=== PATIENT | female | born 1960 | race Hispanic/Latino ===

== ENCOUNTER 2024-07-24 21:29 | Inpatient (IN) | payer OTHER, SELFPAY ==
[2024-07-24 17:13] VITALS: BP 166/94
[2024-07-24 17:55] LABS: ALT (SGPT) 18 U/L (0-35); AST (SGOT) 18 U/L (14-36); Albumin 3.6 g/dl (3.5-5.0); Alkaline Phosphatase 302 U/L (38-126); Blood Urea Nitrogen 12 mg/dl (7-17); Calcium 9.1 mg/dl (8.4-10.2); Carbon Dioxide 15 mmol/L (22-30); Chloride 92 mmol/L (98-107); Glucose 384 mg/dl (70-99); Potassium 3.6 mmol/L (3.5-5.1); Sodium 129 mmol/L (135-145); Total Bilirubin 0.7 mg/dl (0.2-1.3); Total Protein 6.6 g/dl (6.3-8.2); eGFR > 60.00
[2024-07-24 17:56] LABS: Lactic Acid 1.4 mmol/L (0.7-2.0)
[2024-07-24 18:07] LABS: Absolute Neutrophils -Man Diff 32.1 10^3/uL (1.4-6.5); Band Neutrophils 10 % (0-3); Eosinophils 1 % (0-6); Hematocrit 41.4 % (37.0-47.0); Hemoglobin 14.1 g/dL (12.0-16.0); Lymphocytes 5 % (20-51); Mean Corp Hgb Conc. 34.1 g/dL (33.0-37.0); Mean Corpuscular Volume 88.1 fL (81.0-99.0); Mean Platelet Volume 10.3 fL (7.4-10.4); Monocytes 7 % (2-9); Platelet Count 408 10^3/uL (130-400); Platelets Checked Yes; Red Cell Dist. Width 11.8 % (11.5-14.5); Segmented Neutrophils 77 % (42-75)
[2024-07-24 18:08] LABS: Normal RBC Morphology Yes; Total Cells Counted 100
--- NOTE | 2024-07-24 18:32 | ED.GENMED ---
History of Present Illness
General
Chief Complaint: Skin Problem
Time Seen by Provider: 07/24/24 18:31
History of Present Illness
History of Present Illness:
TIME OF INITIAL ENCOUNTER: 6:30 PM
HPI: Patient presents due to 6 days of upper back swelling. She has been having chills. She denies any significant past medical history. She has been on amoxicillin without improvement. She came here from [facility] with a
human resources hr representative from there.
EXAM:
GENERAL: Appears uncomfortable
HEENT: Moist oral mucosa
CARDIOVASCULAR: No murmurs, tachycardic heart rate, regular rhythm, No chest wall tenderness
PULMONARY: No respiratory distress, breath sounds are clear and equal
ABDOMEN: Soft with no peritoneal signs, no tenderness
NEUROLOGIC: Excellent strength all extremities, no coordination deficits
PSYCHIATRIC: Appropriate mental status, normal insight and judgement
EXTREMITIES: Nontender, no edema, moves all extremities equally
BACK: There is a very large approximately half softball sized abscess which drained copious amount of pus after incision
SKIN: No rash, no lesions
NUMBER AND COMPLEXITY OF PROBLEMS ADDRESSED AT THE ENCOUNTER
� Chronic conditions affecting care: No significant medical problems
� Acute Exacerbation and/or Progression of Chronic Illness: This is an acute problem
� Differential Diagnosis includes: Skin abscess, sepsis, undiagnosed diabetes
AMOUNT AND/OR COMPLEXITY OF DATA TO BE REVIEWED AND ANALYZED
� I performed an independent evaluation of and my interpretation is:
EKG:
CT:
X-rays:
Laboratory Studies: White count 37, hemoglobin normal, 10% bands, bicarb 15, lactic 1.4, glucose 384
Other:
� Review of other/old records: No old records available for review in [facility]
� Clinical information was obtained by an independent historian: I spoke to at bedside and a human resources hr representative from [facility] at bedside to translate
� Prescriptions/Medications Considered but not given:
� Further testing considered but not performed:
RISK OF COMPLICATIONS AND/OR MORBIDITY OR MORTALITY OF PATIENT MANAGEMENT
� Social determinants of health affecting care: Gets care at [facility]
� Discussion with other providers: Notified general surgery, and hospitalist, Dr. Paris for admission
� Escalation of care including admission/observation vs risk of discharge considered: After verbal informed consent given by the , I incised the area of concern and drained a copious amount of purulent drainage. I placed
packing in the affected area. I am concerned for more serious infection and lactic and blood cultures obtained. It appears she also has undiagnosed diabetes as well. Wound culture also obtained.
ANY OTHER UPDATES:
I did order a dose of insulin. She was also given IV fluids. Wound culture pending.
Phy Exam
Physical Exam
Physical Exam:
See HPI
Course
Orders/Labs/Results
Orders:
Orders
07/24/24 17:30
Alcohol Urgent
B-Hydroxybutyrate Urgent
Comment: ADDON
Complete Blood Count/With Diff Urgent
Comprehensive Metabolic Panel Urgent
Lactate Level [Lactic Acid] Urgent
Manual Differential Urgent
07/24/24 19:22
Vancomycin [Vancocin] 2,000 mg 0.9% Sodium Chloride 500 ml [Nss] 500 ml IV NOW
07/24/24 19:38
Ketorolac [Toradol] 15 mg IV NOW STA
07/24/24 19:45
Lactic Acid Q4H
Comment: CANCEL 2nd LACTIC ACID IF 1st LACTIC ACID IS LESS THAN 2
Blood Culture Q30M
DENISE Source: Blood/Venous
Specimen Description:
07/24/24 19:46
Blood Culture Q30M
DENISE Source: Blood/Venous
Specimen Description:
07/24/24 20:08
Wound Culture [Wound/Abscess/Other Culture] Urgent
DENISE Source: Back
Specimen Description:
Date Specimen was Collected: 07/24/24
Time Specimen was Collected: 20:07
07/24/24 20:14
UA Reflex to Culture [Urinalysis Reflex To Culture] Urgent
07/24/24 20:19
0.9% Sodium Chloride 1000 ml [Nss] 1,000 ml IV BOLUS
07/24/24 20:22
Add On- LAB Urgent
Tests Added?: B-hydroxybuterate
07/24/24 20:23
0.9% Sodium Chloride 1000 ml [Nss] 1,000 ml IV BOLUS
07/24/24 20:24
Potassium Chloride [KCl] 40 meq PO NOW STA
07/24/24 20:25
Add On- LAB Urgent
Tests Added?: a1c
Insulin Human Regular [Novolin R] 7 units IV NOW STA
07/24/24 20:42
Bedside Glucose Monitoring As Directed
Frequency: Q1H
Additional Instructions:: please do not start until both boluses given
07/24/24 20:51
Admit/Transfer Patient As Directed
Co-Sign Provider:
Level of Care: Inpatient admission
Assign to:: IMU- Intermediate Care
Physician / Group: Sandra Tsai
Diagnosis: DKA, left upper back abscess, sepsis
Reason for Hospitalization: DKA, left upper back abscess, sepsis
Expected length of stay greater than two midnights?: Yes
ELOS- Estimated Length of Stay in days: 3
I certify the patient meets the requirements for IP care: Yes
PRN Pain Medication Management As Directed
May give lesser potent ordered pain med per pt: Yes
preference::
Protocol:: Medication orders for pain may be administered in a
manner that supports deferring to patient preference
when the pt is:
- Requesting an ordered lesser potent pain medication.
Least to most potent pain medications are defined
as: acetaminophen < NSAID < tramadol < opioids
(morphine, oxycodone, hydromorphone).
- Requesting a lesser dose of the same medication IF
ORDERED.
- Requesting a less intrusive route of administration
if both routes are prescribed by the provider (PO <
IV).
07/24/24 20:54
Code Status As Directed
Resuscitation Status: Full Code
07/24/24 21:00
Reg Insulin 100 Units/100 ml [Novolin R Insulin Infusion] 100 units in 100 ml IV PER PROTOCOL
Initial dose in units/hr, then titrate:: 7
07/24/24 21:28
PRN Pain Medication Management As Directed
May give lesser potent ordered pain med per pt: Yes
preference::
Protocol:: Medication orders for pain may be administered in a
manner that supports deferring to patient preference
when the pt is:
- Requesting an ordered lesser potent pain medication.
Least to most potent pain medications are defined
as: acetaminophen < NSAID < tramadol < opioids
(morphine, oxycodone, hydromorphone).
- Requesting a lesser dose of the same medication IF
ORDERED.
- Requesting a less intrusive route of administration
if both routes are prescribed by the provider (PO <
IV).
07/24/24 22:00
BMP [Basic Metabolic Panel] Q2
07/24/24 23:00
Lactic Acid Q4H
Comment: CANCEL 2nd LACTIC ACID IF 1st LACTIC ACID IS LESS THAN 2
07/25/24 00:00
BMP [Basic Metabolic Panel] Q2
07/25/24 02:00
BMP [Basic Metabolic Panel] Q2
07/25/24 04:00
BMP [Basic Metabolic Panel] Q2
07/25/24 06:00
BMP [Basic Metabolic Panel] Q2
07/25/24 08:00
BMP [Basic Metabolic Panel] Q2
07/25/24 10:00
BMP [Basic Metabolic Panel] Q2
07/25/24 12:00
BMP [Basic Metabolic Panel] Q2
07/25/24 14:00
BMP [Basic Metabolic Panel] Q2
07/25/24 16:00
BMP [Basic Metabolic Panel] Q2
Abnormal Lab Results
07/24/24 07/24/24
17:30 21:14
WBC 37.0 H 10^3/uL
(4.8-10.8)
Plt Count 408 H 10^3/uL
(130-400)
Abs Neuts (Manual) 32.1 H 10^3/uL
(1.4-6.5)
Segmented Neutrophils 77 H %
(42-75)
Band Neutrophils 10 H %
(0-3)
Lymphocytes (Manual) 5 L %
(20-51)
Sodium 129 L mmol/L
(135-145)
Chloride 92 L mmol/L
(98-107)
Carbon Dioxide 15 L mmol/L
(22-30)
Creatinine 0.4 L mg/dL
(0.6-1.0)
Glucose 384 H mg/dl
(70-99)
Alkaline Phosphatase 302 H U/L
(38-126)
B-Hydroxybutyrate 4.23 H mmol/L
(0.02-0.27)
POC Glucose 306 H mg/dl
(70-99)
07/24/24 17:30
07/24/24 17:30
Vital Signs
Initial and Last Documented VS:
Initial Vital Signs
Temp Pulse Resp BP Pulse Ox
37.3 C 128 20 166/94 99
07/24/24 17:13 07/24/24 17:13 07/24/24 17:13 07/24/24 17:13 07/24/24 17:13
Last Documented Vital Signs
Temp Pulse Resp BP Pulse Ox
37.3 C 102 20 100/68 98
07/24/24 17:13 07/24/24 21:30 07/24/24 17:13 07/24/24 21:21 07/24/24 21:30
*Critical Care Note
Total Time (30-74mins, 75-104mins- exclusive of procedures): Not Applicable
ED Attending Note
-
Portions of this chart may have been created with voice recognition software.� Occasional wrong word or��sound alike� substitutions may have occurred due to the inherent limitations of voice recognition software.
Discharge Plan
Departure
Patient Disposition: Admit
Date of Disposition: 07/24/24
Time of Disposition: 20:24
Presentation/result/management discussed w/ accepting MD/DO: Hospitalist
Discharge Problem:
Sepsis
Interventions
Interventions:
*Risk Screen - Suicide Last Done: 07/24/24 17:13
*General Assessment Last Done: 07/24/24 19:18
*Neglect/Abuse Screening Last Done: 07/24/24 19:18
ED- Fall Risk Assessment Last Done: 07/24/24 20:12
*ED COVID-19 Vaccine History Last Done: 07/24/24 19:18
ED-Skin Assessment Last Done: 07/24/24 20:12
[2024-07-24 19:16] VITALS: BMI 28.8
[2024-07-24] MEDS: VANCOCIN 540 MG IV (20:06)
[2024-07-24] MEDS: TORADOL 15 MG IV (20:06)
--- NOTE | 2024-07-24 20:08 | W.PN.UPDATE ---
Addendum entered and electronically signed by Sandra Tsai MD 07/24/24 23:33:
On exam patient AAO x3; left upper back with packing in place, surrounding tenderness mild drainage through gauze
Chest clear
CV: S1, S2, RRR
Abdomen benign
No LE swelling
Addendum entered and electronically signed by Sandra Tsai MD 07/24/24 23:24:
*patient took her own Amoxicillin at home prior to presenting to clinic
Original Note:
Update Note
Progress Note Update
This is an addendum to H&P written by CYCLE DIRECTOR Geraldine Palacios
I saw and examined the patient.
The CYCLE DIRECTOR's note was reviewed and I agree with the note.
Comment:
Ms. Nayeli Javier is a 64 yo woman without significant past medical history presents to the ER complaining of growing mass in upper back associated with chills and fever. She was started on amoxicillin as outpatient without improvement.
Triage VS: 99, P 128, RR 20, BP 166/94, SpO2 99%
LABS: WBC 37, bands 10%, Hg 14.1, PLT 408, Na 129, K+ 3.6, Cl 92, CO2 15, Cr 0.4, lactate 1.4, glucose 384, AG = 22
MAR: Vancomycin, IV Toradol
per ER note: 'After verbal informed consent given by the , I incised the area of concern and drained a copious amount of purulent drainage. I placed packing in the affected area.'
Sepsis 2/2 Abscess
-s/p drainage in the ER now with packing in place
-continue IV Vancomycin
-F/U blood cultures and wound culture
-GS consulted
-IVF
DKA, new diagnosis DM
Hyperglycemia
-2L IVF ordered
-patient with mild DKA with CO2 15, AG 22; Glucose 384
-will start IV insulin gtt
-give extra K now (K 3.6) and monitor BMP q 2 hours initially to monitor K
-q 1 hour glucose checks
-DM CYCLE DIRECTOR consult
-F/U AM A1c
Pseudohyponatremia - corrected 134
Remainder of plan per CYCLE DIRECTOR's note
76 minutes spent on patient care
[2024-07-24 20:09] VITALS: BP 116/100
--- NOTE | 2024-07-24 20:10 | HPS.HSE ---
Family Physician
-
Family Physician:
Chief Complaint
-
left upper back pain and swelling
History of Present Illness
Patient is a 64-year-old female with no significant past medical history who presented to [facility] ED for evaluation of left upper back pain and swelling. Patient stated that 6 days ago she had a blackhead like area that appeared to
possibly be an ingrown hair that gradually developed into a large abscess. She started taking amoxicillin that she had at home 5 days ago and it continued to increase in size. She went to [facility] today where Dr. Delvalle sent her to ED
for evaluation. Patient states she had no fevers but did have the chills. Denies any other symptoms. ED physician obtained copious amount of pus after incision. Incidentally when labs were drawn patient is currently in DKA with a gap of 22.
Medical History
Past Medical History
Past Medical History: Reports None
Past Surgical History: Reports Other
Additional Past Surgical History:
x3
cholecystectomy
Social History
Tobacco: Non-smoker
Alcohol: None
Drug: None
Living: With Family
Employment: Not Employed
Family History
Family History: Other (Mother: DM)
Allergies / Home Medications
Allergies reflects when Allergies were last updated in [employer].
Home Medications with original date entered in [employer]
Allergy/Medication List:
Allergies
Allergy/AdvReac Type Severity Reaction Status Date / Time
No Known Allergies Allergy Unverified 07/24/24 17:16
Home Medications
amoxicillin 500 mg tablet 500 mg PO TID 07/24/24
ibuprofen 200 mg tablet (Advil) 200 mg PO Q6HPRN PRN mild pain/fever 07/24/24
Review of Systems
-
History Source: Patient
Constitutional: Reports Chills
EENT: Reports No Symptoms
Respiratory: Reports No Symptoms
Cardiac: Reports No Symptoms
Abdomen/GI: Reports No Symptoms
: Reports No Symptoms
Musculoskeletal: Reports No Symptoms
Skin: Reports Other (large area of swelling and pain to left upper back )
Neurological: Reports No Symptoms
Endocrine: Reports No Symptoms
Hematologic/Lymphatic: Reports No Symptoms
Psych: Reports No Symptoms
Physical Exam
Vital Signs
Vital Signs
Temp Pulse Resp BP Pulse Ox
99.1 F 128 20 166/94 99
07/24/24 17:13 07/24/24 17:13 07/24/24 17:13 07/24/24 17:13 07/24/24 17:13
Physical Exam
General: Well Developed, Well Nourished, No Apparent Distress, Comfortable, Conversant and Obese
HEENT: NormoCephalic, Moist mucous membranes, Atraumatic, PERRLA, [place] Conjunctivae, Nose Appears Normal and Ears Appear Normal
Respiratory: Clear, Non Labored Respirations and Decreased Breath Sounds
Cardiac: S1/S2 and Regular Rhythm; No Murmur, Rub or Gallop
Breast: Deferred by me
GI: Soft, Non Tender, Non Distended and Normal Bowel Sounds; No Organomegaly
Rectal: Deferred by Provider
Genito-urinary: Deferred by me
Musculoskeletal: No Clubbing, No Cyanosis and No Edema
Skin: Warm, IV/Catheter Site and Other (Large abscess to left upper back draining copious amounts of pus after incision ); No Rash
Neuro: Awake, Alert, AO x 3 and Nonfocal/grossly intact
Psych: Calm and Intact Judgment/Insight
Laboratory Results
-
07/24/24 17:30
07/24/24 17:30
Laboratory Results
Lactic Acid 1.4 mmol/L (0.7-2.0) 07/24/24 17:30
Total Bilirubin 0.7 mg/dl (0.2-1.3) 07/24/24 17:30
AST 18 U/L (14-36) 07/24/24 17:30
ALT 18 U/L (0-35) 07/24/24 17:30
Alkaline Phosphatase 302 U/L (38-126) H 07/24/24 17:30
Data Reviewed
-
Lab Data: Labs Reviewed by me (WBC 37.0, Bands 10, Na+ 129, Bicarb 15, glucose 384, alk phos 302)
Impression/Plan
-
IMPRESSION/PLAN:
#upper left back abscess
WBC 37.0, Bands 10%
incision by ED with copious amount of pus
- Admit to IMU
- consult surgery
- IV Vanco
#DKA
patients mother with hx DM
- DKA protocol with IV insulin gtt
- IVF KCl
- NPO
- BMP q2
- A1C
- consult Diabetic OPTICAL ELEMENT COATER
Code status: Full code
DVT prophylaxis: Lovenox sq
[2024-07-24 20:11] VITALS: BP 110/57
[2024-07-24 20:29] LABS: Lactic Acid 1.6 mmol/L (0.7-2.0)
[2024-07-24] MEDS: NSS 1000 IV ×2 (20:30→20:48)
[2024-07-24] MEDS: KCL 40 MEQ PO (20:46)
[2024-07-24 21:06] LABS: Alcohol None Detected
[2024-07-24 21:10] LABS: B-Hydroxybutyrate 4.23 mmol/L (0.02-0.27)
[2024-07-24 21:15] LABS: Glucose - Point of Care 306 mg/dl (70-99)
[2024-07-24] MEDS: NOVOLIN R INSULIN INFUSION 100 IV (21:15)
[2024-07-24 21:21] VITALS: BP 100/68
[2024-07-24 22:28] VITALS: BP 113/56
[2024-07-24 22:37] LABS: Glucose - Point of Care 274 mg/dl (70-99)
[2024-07-24 22:58] LABS: Urine Albumin 1+ (Neg - Trace); Urine Bilirubin Negative (Negative); Urine Character Clear (Clear); Urine Color Yellow; Urine Glucose 4+ (Negative); Urine Ketone 3+ (Negative); Urine Leukocyte Negative (Negative); Urine Nitrite Negative (Negative); Urine Occult Blood Negative (Negative); Urine Specific Gravity 1.015 (<1.030); Urine Urobilinogen Negative (Neg - 1+)
[2024-07-24 23:19] LABS: Urine Bacteria Few (Negative); Urine Red Blood Cell 0-2 /HPF (0-2); Urine White Cell 0-2 /HPF (0-5)
[2024-07-24] MEDS: NSS with KCL 20 MEQ 1000 IV (23:27)
[2024-07-24 23:38] LABS: Glucose - Point of Care 198 mg/dl (70-99)
[2024-07-24 23:39] LABS: Blood Urea Nitrogen 8 mg/dl (7-17); Calcium 8.1 mg/dl (8.4-10.2); Carbon Dioxide 13 mmol/L (22-30); Chloride 103 mmol/L (98-107); Estimated Creatinine Clearance 82 ml/min; Glucose 253 mg/dl (70-99); Potassium 3.4 mmol/L (3.5-5.1); Sodium 130 mmol/L (135-145); eGFR > 60.00
[2024-07-25] VITALS (11 sets, daily range): BP systolic 90–145; BP diastolic 42–71; BMI 29.8
[2024-07-25] MEDS: D5/0.45%NSS with KCL 20 MEQ 1000 IV (00:05)
[2024-07-25] MEDS: SODIUM BICARBONATE 50 MEQ IV (00:06)
--- NOTE | 2024-07-25 00:29 | PTCARENOTE ---
Patient admitted to IMU around 2229. Patient georgian speaking, understands small amount of french. Spouse at bedside and able to translate. Patient aaox3, denies pain however is noted moaning at times during wound care. Dressing peeling off of left
upper back. Abd pad removed and area cleaned with NSS and gauze, packing remained in place. Abscess draining large amounts of gonzalez/pink purulent drainage. Area cleaned and sterile gauze and ABD pads applied. HRR, NSR on the monitor. Lungs CTA
throughout, bs active x4. Patient assisted x1 to bsc, continent of urine.
Patient had insulin gtt at 7u/hr, decreased to 4, then to 2u/hr at the current time. RN contacted PLAYER PIANO TECHNICIAN when last bg 198, critical Co2- 13. PLAYER PIANO TECHNICIAN ordered amp of bicarb and changed IVF to D5 0.45% with 20mEq of K. Medications administered and fluids
changed. Patient currently resting in bed with spouse at bedside. Will continue to monitor.
[2024-07-25 00:49] LABS: Glucose - Point of Care 180 mg/dl (70-99)
[2024-07-25] MEDS: KCL 20 MEQ PO (01:02)
[2024-07-25 01:26] LABS: Blood Urea Nitrogen 9 mg/dl (7-17); Calcium 7.8 mg/dl (8.4-10.2); Carbon Dioxide 19 mmol/L (22-30); Chloride 105 mmol/L (98-107); Estimated Creatinine Clearance 82 ml/min; Glucose 186 mg/dl (70-99); Potassium 3.4 mmol/L (3.5-5.1); Sodium 132 mmol/L (135-145); eGFR > 60.00
[2024-07-25 01:47] LABS: Glucose - Point of Care 194 mg/dl (70-99)
--- NOTE | 2024-07-25 02:09 | PTCARENOTE ---
BROOKE notified about 0000 BMP result per order.
[2024-07-25 02:46] LABS: Glucose - Point of Care 212 mg/dl (70-99)
[2024-07-25] MEDS: TYLENOL 650 MG PO ×2 (02:50→08:16)
--- NOTE | 2024-07-25 03:07 | PTCARENOTE ---
pt with pain to abscess site. notified covering SEROLOGY TEACHER- PO tylenol ordered and given. remains at bedside.
[2024-07-25 03:21] LABS: Blood Urea Nitrogen 9 mg/dl (7-17); Calcium 8.2 mg/dl (8.4-10.2); Carbon Dioxide 20 mmol/L (22-30); Chloride 106 mmol/L (98-107); Estimated Creatinine Clearance 83 ml/min; Glucose 226 mg/dl (70-99); Potassium 3.8 mmol/L (3.5-5.1); Sodium 135 mmol/L (135-145); eGFR > 60.00
[2024-07-25 03:38] LABS: Glucose - Point of Care 238 mg/dl (70-99)
--- NOTE | 2024-07-25 03:41 | W.PN.UPDATE ---
Update Note
Progress Note Update
-Anion gap is 9.
-10 unit of Lantus given, will d/c insulin drip, starting SSI and diabetic diet.
[2024-07-25] MEDS: LANTUS 0.1 UNITS SC (04:19)
[2024-07-25 04:37] LABS: Glucose - Point of Care 205 mg/dl (70-99)
[2024-07-25 05:50] LABS: Glucose - Point of Care 241 mg/dl (70-99)
[2024-07-25 05:59] LABS: Hematocrit 30.1 % (37.0-47.0); Hemoglobin 10.6 g/dL (12.0-16.0); Mean Corp Hgb Conc. 35.2 g/dL (33.0-37.0); Mean Corpuscular Hgb 30.6 pg (27.0-31.0); Mean Platelet Volume 10.3 fL (7.4-10.4); Platelet Count 304 10^3/uL (130-400); Red Blood Cell Count 3.46 10^6/uL (4.20-5.40); Red Cell Dist. Width 11.8 % (11.5-14.5); White Blood Cell Count 25.7 10^3/uL (4.8-10.8)
--- NOTE | 2024-07-25 06:08 | PTCARENOTE ---
pt's gap closed, notified covering DEPUTY BRAND INSPECTOR- orders placed. pt's aware of new orders and translated to patient as well. insulin gtt and IV fluids off at this time. pt given diet and education done on how to order breakfast.
[2024-07-25 06:11] LABS: Blood Urea Nitrogen 9 mg/dl (7-17); Calcium 8.1 mg/dl (8.4-10.2); Carbon Dioxide 20 mmol/L (22-30); Chloride 106 mmol/L (98-107); Estimated Creatinine Clearance 83 ml/min; Glucose 204 mg/dl (70-99); Magnesium 1.8 mg/dl (1.6-2.3); Potassium 3.6 mmol/L (3.5-5.1); Sodium 133 mmol/L (135-145); eGFR > 60.00
--- NOTE | 2024-07-25 06:13 | PTCARENOTE ---
Patient with increased observable pain. Received 1 dose of tylenol earlier this am. Patient c/o positional pain as she cannot lean back d/to discomfort from laceration. Rn notified RACE CAR MECHANIC and offered patient to get oob into chair with assist. Pillows
positioned on chair to allow patient to lean back without putting pressure on wound. Patient verbalizes increased comfort and declines PRN pain medication at this time.
[2024-07-25 07:59] LABS: Glucose - Point of Care 215 mg/dl (70-99)
--- NOTE | 2024-07-25 08:01 | PHA.VAN.IN ---
Assessment
- Assessment
Renal Function: Appears similar to baseline
AUC Dosing Plan
- Dosing Variables
Dosing Weight (kg): 71.5
Dosing CrCl (ml/min): 82
Vd coefficient (L/kg): 0.7
- Empiric Dosing
Initial / Loading Dose: 2000mg - 07/24 20:06
Maintenance Regimen: Vanc 750mg Q12H - first dose now then 1800
Estimated AUC (mcg*h/mL): 429
Estimated Peak (mcg*h/mL): 25.8
Estimated Trough (mcg/ml): 11.6
Estimated Half Life (H): 9.6
- Monitoring
No levels ordered at this time: consider levels in next few days
Pharmacokinetics Vancomycin I
- -
Patient Age: 64
Patient Sex: Male
Vancomycin Day #: 1
Indication: Skin And Soft Tissue
Requesting Provider: Yakov Palacios
Pertinent Antimicrobial Allergies:
NKDA
Height / Weight:
Height 5 ft 1 in
Actual Weight 71.5 kg
Pertinent Past Medical History: DM
- Vital Signs / Lab Results
Temp Pulse Resp BP Pulse Ox
100.1 F 70 20 110/56 98
07/25/24 04:28 07/25/24 06:11 07/25/24 06:11 07/25/24 06:11 07/25/24 02:06
Lab Results - Hematology
07/24/24 07/25/24
17:30 05:38
WBC 37.0 H 25.7 H
Band Neutrophils 10 H
Lab Results - Chemistry
07/24/24 07/24/24 07/25/24
17:30 22:40 00:48
BUN 12 8 9
Creatinine 0.4 L 0.3 L 0.3 L
Estimated Creat Clear 82 82
Albumin 3.6
07/25/24 07/25/24 07/25/24
02:52 04:00 05:38
BUN 9 Cancelled 9
Creatinine 0.3 L Cancelled 0.3 L
Estimated Creat Clear 83 Cancelled 83
Albumin
07/25/24 07/25/24 07/25/24
08:00 10:00 12:00
BUN Cancelled Cancelled Cancelled
Creatinine Cancelled Cancelled Cancelled
Estimated Creat Clear Cancelled Cancelled Cancelled
Albumin
07/25/24 07/25/24
14:00 16:00
BUN Cancelled Cancelled
Creatinine Cancelled Cancelled
Estimated Creat Clear Cancelled Cancelled
Albumin
07/24/24 07/24/24 07/24/24
17:30 19:45 23:00
Lactic Acid 1.4 1.6 Cancelled
Lab Results - Urine
07/24/24
22:40
Urine Nitrite (Reflex) Negative
Leukocyte Esterase Rfl Negative
Urine WBC (Reflex) 0-2
Ur Squamous Epith Cells 6-10
Urine Bacteria (Reflex) Few A
[2024-07-25] MEDS: NOVOLOG FLEXPEN-LOW RESISTANCE 2 UNITS SC (08:16)
[2024-07-25 08:22] LABS: % Basophils 0.7 % (0-2); % Eosinophils 0.5 % (0-6); % Lymphocytes 8.4 % (20.5-51.1); % Monocytes 7.4 % (1.7-9.3); Absolute Basophils 0.2 10^3/uL (0-0.2); Absolute Eosinophils 0.1 10^3/uL (0-0.7); Absolute Lymphocytes 2.2 10^3/uL (1.2-3.4); Absolute Monocytes 1.9 10^3/uL (0.1-0.6); Absolute Neutrophils 20.3 10^3/uL (1.4-6.5); Nucleated Red Blood Cells % 0 %
[2024-07-25] MEDS: VANCOCIN 150 IV ×2 (08:29→18:32)
--- NOTE | 2024-07-25 09:52 | W.PN.HOSP.TC ---
Addendum entered and electronically signed by Tc Reyes MD 07/25/24 20:06:
Attending Addendum-
I saw and evaluated the patient. I reviewed the resident�s note and agree with findings and plan as documented in the resident�s note. Sub: Seen with present. Patient only speaks Yoruba. Patient complains of mild pain in upper back. Febrile
this AM no chills. No other complaints. Full 12 point ROS reviewed and negative except as documented Exam: Vitals reviewed in chart GEN-NAD heart RRR lungs claer abd soft Back upper left back 6x6 abscess soft fluctuant packing in place. LE no edema
b/l
Plan:
#Sepsis secondary to upper left back abscess with extension into muscle
-CT chest- 07/25-Posterior superior left para midline upper back infection with intramuscular extension involving the left trapezius muscle.
-s/p I and D in ED 07/24 draining copious amount of pus-sent for analysis
-I and D at bedside by surgery on 07/25- 20ccs of pus expressed and not sent for analysis
-gm stain GPC- await cx results
-blood cx- NGTD
-cont vancomycin day #2
-cont wound care per surgery
-leukocytosis trending down
-repeat CBC in am
#DKA/DM
-new dx DM- hba1c 12.8
-gap closed, insulin gtt transitioned to NovoLog 70/30 and metformin due to cost
-transfer out of IMU
-DC IVF
-advance diet
-Diabetic PAPER STRIPPER on board appreciate input
# Pseudohyponatremia
- from hyperglycemia
- cont to trend BMP
# Anemia
- partially dilutional trend cbc
DVPp-lovenox
CODE- FULL verified with /POA
ACP
Patient consented to discuss,I spoke Yoruba with patient, present, time spent explanation of advance directives, changes in health status, patient�s health care wishes if the patient becomes unable to make health decisions, goals of care,
code status, and prognosis- 16 minutes
Time spent coordinating care, review of plan of care with resident, personally reviewed previous records in EMR, med rec, labs, radiology, d/w nursing, family total time documented is exclusive of any additional time listed that was spent in advance
care planning discussion -�54 minutes
Original Note:
Today's Communication/Plan
-
Continue insulin sliding scale
Awaiting surgery consult
Continue Vanco while awaiting for culture results
Transfer to [facility]
Assessment / Plan
Assessment / Plan
64-year-old female with no significant past medical history who presented to [facility] ED for evaluation of left upper back pain and swelling. Incidental finding of DKA with gap of 22 on arrival.
# Sepsis secondary to left upper back abscess
-- s/p 2 bags of IV NSS in ER, 1 bag potassium chloride/sodium chloride with KCl 20 meq, 1 bag potassium chloride/dextrose/sodium chloride with KCl 20
-- I&D in the ER
-- IV vancomycin per protocol
-- Blood culture and wound culture pending; MRSA pending
-- Tylenol as needed for pain; s/p 1 dose of IV Dilaudid 0.5
-- Awaiting surgery consult
# DKA; new onset diabetes melitis
--Beta-hydroxybutyrate 4.23 on arrival
--Was initially on insulin drip and received 40+20 mEq potassium chloride however gap closed with anion gap of 9 today
--IV fluids as above
--s/p sodium bicarb 50 mEq
--Discontinue insulin drip
--Insulin sliding scale low resistant
--HbA1c 12.8
--Consult diabetic PAPER STRIPPER; consult for diabetic education
-- Transfer out of IMU
#Anemia
-- Likely delusional
-- Repeat CBC in a.m.
# Ambulatory dysfunction
-- PT eval and treat
DVT prophylaxis; Lovenox
Diabetic diet
Full code
Anticipated Discharge: Within 24 hours
Subjective/Interval History
-
Date of Service: July 25, 2024
Mild pain around the abscess on left upper back.
Objective Data
-
Labs:
Laboratory Data
Total Bilirubin 0.7 mg/dl (0.2-1.3) 07/24/24 17:30
AST 18 U/L (14-36) 07/24/24 17:30
ALT 18 U/L (0-35) 07/24/24 17:30
Alkaline Phosphatase 302 U/L (38-126) H 07/24/24 17:30
Laboratory Data
WBC 25.7 10^3/uL (4.8-10.8) H 07/25/24 05:38
Hgb 10.6 g/dL (12.0-16.0) L D 07/25/24 05:38
Plt Count 304 10^3/uL (130-400) D 07/25/24 05:38
eGFR Cancelled 07/25/24 16:00
Lab Results - Hematology
07/24/24 07/25/24
17:30 05:38
WBC 37.0 H 25.7 H
Band Neutrophils 10 H
Lab Results - Chemistry
07/24/24 07/24/24 07/25/24
17:30 22:40 00:48
BUN 12 8 9
Creatinine 0.4 L 0.3 L 0.3 L
Estimated Creat Clear 82 82
Albumin 3.6
07/24/24 07/24/24 07/24/24
17:30 19:45 23:00
Lactic Acid 1.4 1.6 Cancelled
Lab Results - Urine
07/24/24
22:40
Urine Nitrite (Reflex) Negative
Leukocyte Esterase Rfl Negative
Urine WBC (Reflex) 0-2
Ur Squamous Epith Cells 6-10
Urine Bacteria (Reflex) Few A
Vital Signs:
Vital Signs
Temp Pulse Resp BP Pulse Ox
101.3 F H 70 20 110/56 98
07/25/24 07:20 07/25/24 06:11 07/25/24 06:11 07/25/24 06:11 07/25/24 02:06
Review of Systems
-
History Source: Patient
Constitutional: Reports Fever
Respiratory: Reports No Symptoms
Cardiac: Reports No Symptoms
Abdomen/GI: Reports No Symptoms
Neuro: Reports No Symptoms
Endocrine: Reports No Symptoms
Physical Exam
-
General: Well Nourished, No Apparent Distress and Conversant (Yoruba only)
HEENT: Normocephalic and Atraumatic
Respiratory: Clear to Auscultation
Cardiac: Regular Rhythm
GI: Soft, Nontender and Nondistended
Musculoskeletal: No Edema
Skin: Warm, Dry and Other (Dressing with packing in place on left upper back. Mild pain on palpation. No apparent discharge. Mild erythema)
Neuro: Awake, Alert and Oriented
Psych: Calm
Data Reviewed
-
Labs: Labs Reviewed by me, Discussed with Physician and Discussed with Patient
[2024-07-25 11:52] LABS: Glucose - Point of Care 251 mg/dl (70-99)
--- NOTE | 2024-07-25 12:13 | CM ---
Armenian speaking patient with Dx new DM/DKA, upper left back abscess. Room air. Off insulin gtt, insulin SQ. Wound care nurse consult pending.
Met with patient and Clifford, with son also at bedside;
the patient resides with her in a 1 story house with 3 ZACK.
She had been independent in ADLs and ambulation until 6-7 days ago when she became ill, stayed in bed, was weak and wobbly when ambulating.
The does seasonal work, is off work for the next 3-4 weeks and can assist the patient at home.
The has been doing wound care, unspecified, to her upper left back.
The patient has no DME or prior VN.
The patient has no PCP. She has no insurance and receives her outpatient medical care at [facility].
Pharmacy - [address], [place]
Plan watch for wound care needs.
Plan probable home with follow up care at [facility].
[2024-07-25] MEDS: DILAUDID 0.5 MG IV (12:30)
--- NOTE | 2024-07-25 12:39 | PTCARENOTE ---
I and d performed bedside by surgery. pt premedicated with 0.5 mg dilaudid iv.
[2024-07-25 12:45] LABS: Glycohemoglobin (HgbA1c) 12.8 % (4.0-5.6)
[2024-07-25] MEDS: NOVOLOG FLEXPEN-LOW RESISTANCE 3 UNITS SC (13:23)
--- NOTE | 2024-07-25 14:03 | WOUNDNOTE ---
[facility] RN NOTE: Reviewed chart and met with patient. Patients wound assessed with Dr. Jones, who performed I&D at bedside. Wound drained large amount of purulent drainage. Dr. Jones packed wound with dry gauze. Plan is for CT scan. Sacrum and heels
intact. Patient moves easily in bed. Wound orders orders, care plan and discharge updated. AMANDA Thomas given updated. Will follow as needed.
--- NOTE | 2024-07-25 14:10 | WOUNDNOTE ---
LEFT UPPER BACK.
--- NOTE | 2024-07-25 14:12 | CON.GS ---
Consultation
-
Date/Time Consultation Requested: 07/24/2024 at 7 PM
Date/Time Consultation Performed: 07/25/2024 1 PM
Requesting Provider: Hospitalist
Performing Provider: Dr. Richey
Reason for Consultation: Back abscess
Medical History
-
Chief Complaint: Back abscess
History of Present Illness:
This is a 64-year-old Azeri-speaking female who presents with 6 days of left upper back swelling. She denies prior medical history though was noted to have glucose in the 300s on admission. The patient underwent an incision and drainage
procedure in the ED. General surgery consulted for wound care reevaluation and management. The patient denies Fever, Chest Pain, Shortness Of Breath, Nausea, Vomiting, changes in urinary and bowel habits, unintentional weight loss.
Past Medical History
Past Medical History: None
Past Surgical History: None
Social History
Tobacco: Non-Smoker
Alcohol: None
Drug: None
Personal:
Living: With Family
Family History
Family History: Reviewed & Not Pertinent
Allergies / Home Medications
Allergy/AdvReac Type Severity Reaction Status Date / Time
No Known Allergies Allergy Unverified 07/24/24 17:16
�Medication �Instructions �Recorded �Confirmed �Type
amoxicillin 500 mg tablet 500 mg PO TID Infection 07/24/24 07/24/24 History
ibuprofen 200 mg tablet (Advil) 200 mg PO Q6HPRN PRN mild 07/24/24 07/24/24 History
pain/fever
Review of Systems
-
All other systems: Negative unless noted
A 10 point review of systems was completed, and was negative except as per HPI.
Physical Exam
Vital Signs
Temp Pulse Resp BP Pulse Ox
97.6 F 75 15 118/62 97
07/25/24 11:05 07/25/24 10:00 07/25/24 10:00 07/25/24 10:00 07/25/24 10:22
07/24/24 07/25/24 07/26/24
06:59 06:59 06:59
Actual Weight 71.5 kg
Body Mass Index (BMI) 29.8
Lab Results
07/25/24 05:38
07/25/24 16:00
WBC 25.7 10^3/uL (4.8-10.8) H 07/25/24 05:38
Hgb 10.6 g/dL (12.0-16.0) L D 07/25/24 05:38
Hct 30.1 % (37.0-47.0) L 07/25/24 05:38
Plt Count 304 10^3/uL (130-400) D 07/25/24 05:38
Abs Immat Gran (auto) 1.0 10^3/uL (0-0.05) H 07/25/24 05:38
Neutrophils % 79.0 % (42.2-75.2) H 07/25/24 05:38
Physical Exam
General: Well Developed
HEENT: Normocephalic
Respiratory: Non Labored Respirations
GI: Soft, Non Tender and Non Distended
Skin: Other (The patient has a large roughly 6 cm round indurated erythematous area on her left upper back with pus coming from a small linear incision.)
Data Reviewed
-
Labs: Labs Reviewed by me, Discussed with Physician, Discussed with Nurse, Discussed with Patient and Discussed with Family
Total Time Spent with Patient (in minutes): 60
Assessment / Plan
-
This is a 64-year-old female with no significant past medical history who presents with an enlarging left upper back abscess that has been going for the past 6 days.
Will plan for an incision and drainage at the bedside here to allow improved drainage. See separate note.
Wound care instructions reviewed:
Will need to change packing twice daily until output decreases.
Continue antibiotics.
Glucose control.
Patient appears stable for floor, will defer transfer to primary.
We will obtain a CT of her chest with IV contrast to ensure there is no residual abscess in her back
General surgery will continue to follow
--- NOTE | 2024-07-25 14:20 | W.PN.SURGUPD ---
Surgical Update
Surgical Update
Bedside incision and Drainage
A team time-out was performed confirming the location/laterality of the procedure, consent and allergies reviewed.
Location: Left upper back
Dimensions: 6 cm x 6 cm
Local: 1% Lidocaine
Autopsy Pathologist: Chantell (wound care)
The skin was cleaned with alcohol and anesthetized with lidocaine. previous linear incision was turned to a cruciate 1 and extended cephalad and caudad. The dissection was carried down through subcutaneous tissue. The abscess cavity was identified
which extended down into the muscle. The wound was irrigated with sterile saline. An additional roughly 20 cc of pus was expressed. Hemostasis was obtained. There was minimal blood loss. The skin was packed with a packing strip and covered with
gauze. No specimens were sent to Pathology/Culture. The patient tolerated the procedure well, discharge instructions reviewed and all questions were answered.
--- NOTE | 2024-07-25 16:28 | PN.DE.MGMTRT ---
Insulin Management
- -
07/25/2024: Diabetes Management Consult
64 year old female w/PMH: T2DM back pain and swelling due to back abscess s/p I&D in the ED. noted for incidental finding of DKA with a glucose level of 384 on admission and GAP of 22. Pt was started on DKA protocol. A1C 12.8%, Cr 0.3, eGFR >60.
GAP has closed and pt was started SQ insulin
Pt received Lantus 10 units @ 4am, insulin drip was turned off at 5AM.
Patient states that she has no insurance but follows up with the [facility] for routine care
Pt awake, alert, oriented, sitting up in chair, offers no complaints, family-Dtr and Son at bedside, assisting with care.
Glucose range 205 to 251 requiring 2-3 units of corrective insulin. She is ordered basal/bolus insulin, however, this is cost prohibitive given lack of insurance
Will switch to 70/30, will start 20 units BID, 1st dose at dinner time. Start Metformin 500mg BID,
Pt's son and Dtr have been instructed to get ReliOn glucose monitor from [facility] for pt use at home.
Provided insulin instructions- please see detailed Diabetes education note.
Diabetes History
- -
Type of Diabetes: 2 requiring insulin
Pre-Admission Diabetes Regimen
07/24/24 07/24/24 07/25/24
17:30 22:40 00:48
Creatinine 0.4 L 0.3 L 0.3 L
07/25/24 07/25/24 07/25/24
02:52 04:00 05:38
Creatinine 0.3 L Cancelled 0.3 L
07/25/24 07/25/24 07/25/24
08:00 10:00 12:00
Creatinine Cancelled Cancelled Cancelled
07/25/24 07/25/24
14:00 16:00
Creatinine Cancelled Cancelled
Lab Results
Hemoglobin A1c 12.8 % (4.0-5.6) H 07/25/24 05:38
Insulin Pump Settings
IP Diabetes Regimen
07/24/24 07/24/24 07/24/24
17:30 21:14 22:26
Glucose 384 H
POC Glucose 306 H 274 H
07/24/24 07/24/24 07/25/24
22:40 23:25 00:37
Glucose 253 H
POC Glucose 198 H 180 H
07/25/24 07/25/24 07/25/24
00:48 01:35 02:34
Glucose 186 H
POC Glucose 194 H 212 H
07/25/24 07/25/24 07/25/24
02:52 03:25 04:00
Glucose 226 H Cancelled
POC Glucose 238 H
07/25/24 07/25/24 07/25/24
04:25 05:31 05:38
Glucose 204 H
POC Glucose 205 H 241 H
07/25/24 07/25/24 07/25/24
07:48 08:00 10:00
Glucose Cancelled Cancelled
POC Glucose 215 H
07/25/24 07/25/24 07/25/24
11:40 12:00 14:00
Glucose Cancelled Cancelled
POC Glucose 251 H
07/25/24
16:00
Glucose Cancelled
POC Glucose
Meal type: Breakfast
Amount consumed: 100%
Patient Education
--- NOTE | 2024-07-25 16:46 | PN.DE ---
Diabetes Education
- -
07/25/2024: Diabetes Education:
Met with Ms. Javier and her family at bedside for insulin instructions. Education provided in Telugu via retort or condenser press operator. Discussed current A1C of 12.8%.
Discussed action of mixed insulin 70/30 as well as symptoms and treatment of hypoglycemia, as she will be discharged home on insulin twice a day. Instructions on set up of insulin pen given with good return demonstration. She is aware to check blood
sugar before breakfast and dinner and inject insulin in abdomen and eat in 10-20 minutes, rotating sites. She was also made aware to store insulin pens that are not in use in the refrigerator. Discussed importance of checking blood sugar 2x/day to
assess food/medication effect on her BS, Pt verbalized understanding.
Pt will need RX at discharge for mixed analog insulins as well as insulin pen needles.
Updates given to pt's Nurse.
[2024-07-25] MEDS: GLUCOPHAGE 500 MG PO (17:46)
[2024-07-25] MEDS: LOVENOX 40 MG SC (17:46)
[2024-07-25] MEDS: NOVOLOG FLEXPEN-MODERATE RESISTANCE 5 UNITS SC (17:52)
[2024-07-25 18:02] LABS: Glucose - Point of Care 256 mg/dl (70-99)
[2024-07-25] MEDS: NOVOLOG MIX 70/30 FLEXPEN 20 UNITS SC (19:34)
[2024-07-25 19:45] LABS: Glucose - Point of Care 228 mg/dl (70-99)
[2024-07-25 21:56] LABS: Glucose - Point of Care 163 mg/dl (70-99)
[2024-07-26] MEDS: TYLENOL 650 MG PO ×2 (00:32→15:15)
[2024-07-26] MEDS: VANCOCIN 150 IV ×2 (05:11→18:06)
[2024-07-26 05:51] LABS: Blood Urea Nitrogen 6 mg/dl (7-17); Calcium 8.5 mg/dl (8.4-10.2); Carbon Dioxide 23 mmol/L (22-30); Chloride 104 mmol/L (98-107); Estimated Creatinine Clearance 83 ml/min; Glucose 142 mg/dl (70-99); Potassium 3.6 mmol/L (3.5-5.1); Sodium 134 mmol/L (135-145); eGFR > 60.00
[2024-07-26 07:01] LABS: % Basophils 0.2 % (0-2); % Eosinophils 1.5 % (0-6); % Immature Granulocytes 3.2 % (0-0.5); % Lymphocytes 15.4 % (20.5-51.1); % Monocytes 6.7 % (1.7-9.3); Absolute Basophils 0.1 10^3/uL (0-0.2); Absolute Eosinophils 0.3 10^3/uL (0-0.7); Absolute Immature Granulocytes 0.7 10^3/uL (0-0.05); Absolute Lymphocytes 3.2 10^3/uL (1.2-3.4); Absolute Monocytes 1.4 10^3/uL (0.1-0.6); Absolute Neutrophils 15.2 10^3/uL (1.4-6.5); Hematocrit 31.3 % (37.0-47.0); Mean Corp Hgb Conc. 35.1 g/dL (33.0-37.0); Mean Corpuscular Hgb 30.3 pg (27.0-31.0); Mean Corpuscular Volume 86.2 fL (81.0-99.0); Mean Platelet Volume 10.2 fL (7.4-10.4); Nucleated Red Blood Cells % 0 %; Platelet Count 316 10^3/uL (130-400); Red Blood Cell Count 3.63 10^6/uL (4.20-5.40); Red Cell Dist. Width 11.7 % (11.5-14.5); White Blood Cell Count 20.8 10^3/uL (4.8-10.8)
[2024-07-26] MEDS: NOVOLOG FLEXPEN-MODERATE RESISTANCE 1 UNITS SC ×2 (07:37→13:02)
[2024-07-26] MEDS: NOVOLOG MIX 70/30 FLEXPEN 20 UNITS SC ×2 (07:38→17:33)
[2024-07-26] MEDS: GLUCOPHAGE 500 MG PO ×2 (07:45→17:32)
[2024-07-26 07:46] LABS: Glucose - Point of Care 159 mg/dl (70-99)
--- NOTE | 2024-07-26 08:59 | PHA.VAN.FU ---
Addendum entered and electronically signed by Nas Cheney (Howard), [facility] 07/26/24 09:10:
Vanco Day #2
Original Note:
Vancomycin Assessment / Plan
- Assessment
Renal Function: Stable
WBC's are: Trending Down
In the past 24 hrs, patient has been: Febrile (101.3 07/25/24 0720)
- Dosing Plan
Continue: Vanco 750mg Q12H
- Monitoring Plan
No level(s) ordered at this time: Consider in the next few days
- Follow Up
Pharmacy will continue to follow.
Vancomycin Follow UP
- -
Patient Age: 64
Patient Sex: Male
Vancomycin Day #: 1
Indication: Skin And Soft Tissue
Requesting Provider: Yakov Palacios
Pertinent Antimicrobial Allergies:
NKDA
Height / Weight:
Height 5 ft 1 in
Actual Weight 71.5 kg
Pertinent Past Medical History: DM
- Vital Signs / Lab Results
Temp Pulse Resp BP Pulse Ox
98 F 76 17 132/66 97
07/26/24 07:11 07/25/24 21:42 07/25/24 21:42 07/25/24 21:42 07/25/24 21:42
Lab Results - Hematology
07/24/24 07/25/24 07/26/24
17:30 05:38 05:20
WBC 37.0 H 25.7 H 20.8 H
Band Neutrophils 10 H
Lab Results - Chemistry
07/24/24 07/24/24 07/25/24
17:30 22:40 00:48
BUN 12 8 9
Creatinine 0.4 L 0.3 L 0.3 L
Estimated Creat Clear 82 82
Albumin 3.6
07/25/24 07/25/24 07/25/24
02:52 04:00 05:38
BUN 9 Cancelled 9
Creatinine 0.3 L Cancelled 0.3 L
Estimated Creat Clear 83 Cancelled 83
Albumin
07/25/24 07/25/24 07/25/24
08:00 10:00 12:00
BUN Cancelled Cancelled Cancelled
Creatinine Cancelled Cancelled Cancelled
Estimated Creat Clear Cancelled Cancelled Cancelled
Albumin
07/25/24 07/25/24 07/26/24
14:00 16:00 05:20
BUN Cancelled Cancelled 6 L
Creatinine Cancelled Cancelled 0.3 L
Estimated Creat Clear Cancelled Cancelled 83
Albumin
07/24/24 07/24/24 07/24/24
17:30 19:45 23:00
Lactic Acid 1.4 1.6 Cancelled
Microbiology Results
07/25/24 01:31 MRSA Screen - Final
Other-Please specify - Other Staph aureus MRSA
07/24/24 19:46 Blood Culture - Preliminary
Blood/Venous No Growth in 24 hours- Final report to follow
07/24/24 19:45 Blood Culture - Preliminary
Blood/Venous No Growth in 24 hours- Final report to follow
07/24/24 20:08 Gram Stain - Preliminary
Back
--- NOTE | 2024-07-26 11:56 | W.PN.GS2 ---
Addendum entered and electronically signed by Jan Richey MD 07/26/24 12:47:
I saw and examined the patient independently.
The Coal Weigher's note was reviewed and I agree with the note, assessment and plan except where noted below.
Comment: 64-year-old female with left upper back abscess. MRSA positive. Status post I&D x 2. CT chest demonstrates intramuscular extension but no residual drainable fluid collection.
Wound care: Nursing to repack the wound twice daily (this is in addition to the surgical wound changes in the morning) and cover with gauze.
If still no significant clinical improvement by Sunday I may bring her for debridement in the OR.
Continue antibiotics, vancomycin.
Surgery will follow
Original Note:
Today's Communication / Plan
-
continue antibiotics
wound care
possible re-debridement on Sunday, 07/28
Assessment / Plan
-
POD#1 I+D of left upper back abscess, growing MRSA
07/25: CT- posterior superior left para midline upper back infection, as described, with intramuscular extension (myositis) involving the left trapezius muscle. No focal drainable fluid colle
WBC 20.8 from 25.7, hgb 11.0 from 10.6
wound cultures: staph aureus MRSA
-Wound care: dressing changes by RN at least twice daily
-OOB as tolerated
-Continue IV antibiotics - vancomycin
-May require a another debridement of abscess - will check exam tomorrow and decide for OR on Sunday
Subjective Data
-
Date of Service: July 26, 2024
Patient states she has some pain in her back. She otherwise has no complaints.
Objective Data
-
Intake and Output
07/25/24 07/26/24 07/27/24
06:59 06:59 06:59
Other:
Number of approximated LARGE 1
amounts of urine
Vital Signs
Temp Pulse Resp BP Pulse Ox
98 F 76 17 132/66 97
07/26/24 07:11 07/25/24 21:42 07/25/24 21:42 07/25/24 21:42 07/25/24 21:42
Lab Results
07/26/24 05:20
07/26/24 05:20
Calcium 8.5 mg/dl (8.4-10.2) 07/26/24 05:20
Magnesium 1.8 mg/dl (1.6-2.3) 07/25/24 05:38
Total Bilirubin 0.7 mg/dl (0.2-1.3) 07/24/24 17:30
AST 18 U/L (14-36) 07/24/24 17:30
ALT 18 U/L (0-35) 07/24/24 17:30
Alkaline Phosphatase 302 U/L (38-126) H 07/24/24 17:30
Total Protein 6.6 g/dl (6.3-8.2) 07/24/24 17:30
Albumin 3.6 g/dl (3.5-5.0) 07/24/24 17:30
Physical Exam
-
General: Well Developed
HEENT: Normocephalic
Respiratory: Non Labored Respirations
GI: Soft, Non Tender and Non Distended
Skin: left upper back incision, packing in place, changed, pus expressed, repacked
--- NOTE | 2024-07-26 12:31 | W.PN.HOSP.TC ---
Today's Communication/Plan
-
Assessment / Plan
Assessment / Plan
NAD
Scleral Anicteric
MMM
No JVD
CTABL
RRR, S1/S2
Soft, NT, ND, BS+
Warm, Dry
Calm
# Sepsis secondary to left upper back abscess/MRSA growing from wound
-- s/p 2 bags of IV NSS in ER, 1 bag potassium chloride/sodium chloride with KCl 20 meq, 1 bag potassium chloride/dextrose/sodium chloride with KCl 20
-- I&D in the ER
-- IV vancomycin per protocol
-- Blood culture and wound culture pending; MRSA pending
-- Tylenol as needed for pain; s/p 1 dose of IV Dilaudid 0.5
--Potentially may need further debridement decision to be made on 07/28
Isolation precaution
Will consult ID for duration of antibiotics
# DKA; new onset diabetes melitis
--Beta-hydroxybutyrate 4.23 on arrival
--Was initially on insulin drip and received 40+20 mEq potassium chloride however gap closed with anion gap of 9 today
--IV fluids as above
--s/p sodium bicarb 50 mEq
--Discontinue insulin drip
--Insulin sliding scale low resistant
--HbA1c 12.8
--Consult diabetic VICE PRESIDENT SALES; consult for diabetic education
-- Transfer out of IMU
#Anemia
-- Likely delusional
-- Repeat CBC in a.m.
Hyponatremia, euvolemic
-Encourage p.o. intake
# Ambulatory dysfunction
-- PT eval and treat
DVT prophylaxis; Lovenox
Diabetic diet
Full code
Anticipated Discharge: > 48 hours
Subjective/Interval History
-
Date of Service: July 26, 2024
Seen and examined. No new complaints. No acute overnight events.
Objective Data
-
Labs:
Laboratory Results
07/26/24
05:20
WBC 20.8 H
Hgb 11.0 L
Hct 31.3 L
Plt Count 316
Sodium 134 L
Potassium 3.6
Chloride 104
Carbon Dioxide 23
BUN 6 L
Creatinine 0.3 L
Glucose 142 H
Calcium 8.5
Vital Signs:
Vital Signs
Temp Pulse Resp BP Pulse Ox
98 F 76 17 132/66 97
07/26/24 07:11 07/25/24 21:42 07/25/24 21:42 07/25/24 21:42 07/25/24 21:42
[2024-07-26 12:33] LABS: Glucose - Point of Care 180 mg/dl (70-99)
--- NOTE | 2024-07-26 14:44 | PTCARENOTE ---
report called to AMANDA pinon on 3rd floor. Pt updated on plan of care and room transfer.
--- NOTE | 2024-07-26 14:59 | TRANSFER ---
PT arrives from IMU. pt aaox3. family present. oriented to unit. assessment to follow. no pressing concerns at the moment. plan of care continues to be followed.
[2024-07-26 15:00] VITALS: BP 149/79
[2024-07-26 16:55] LABS: Glucose - Point of Care 278 mg/dl (70-99)
[2024-07-26] MEDS: NOVOLOG FLEXPEN-MODERATE RESISTANCE 5 UNITS SC (17:33)
[2024-07-26] MEDS: LOVENOX 40 MG SC (17:34)
[2024-07-26 21:47] LABS: Glucose - Point of Care 156 mg/dl (70-99)
[2024-07-26] MEDS: TORADOL 15 MG IV (22:19)
[2024-07-26 23:43] VITALS: BP 119/54
[2024-07-27] MEDS: VANCOCIN 150 IV ×2 (05:57→17:15)
[2024-07-27 07:00] VITALS: BP 116/70
[2024-07-27 07:08] LABS: % Basophils 0.3 % (0-2); % Eosinophils 1.1 % (0-6); % Immature Granulocytes 4.6 % (0-0.5); % Lymphocytes 17.8 % (20.5-51.1); % Monocytes 8.8 % (1.7-9.3); % Neutrophils 67.4 % (42.2-75.2); Absolute Eosinophils 0.2 10^3/uL (0-0.7); Absolute Immature Granulocytes 0.7 10^3/uL (0-0.05); Absolute Lymphocytes 2.8 10^3/uL (1.2-3.4); Absolute Monocytes 1.4 10^3/uL (0.1-0.6); Absolute Neutrophils 10.8 10^3/uL (1.4-6.5); Hematocrit 35.3 % (37.0-47.0); Hemoglobin 12.2 g/dL (12.0-16.0); Mean Corp Hgb Conc. 34.6 g/dL (33.0-37.0); Mean Corpuscular Hgb 29.8 pg (27.0-31.0); Mean Corpuscular Volume 86.3 fL (81.0-99.0); Mean Platelet Volume 10.6 fL (7.4-10.4); Nucleated Red Blood Cells % 0 %; Platelet Count 371 10^3/uL (130-400); Red Blood Cell Count 4.09 10^6/uL (4.20-5.40); Red Cell Dist. Width 11.9 % (11.5-14.5)
[2024-07-27 07:32] LABS: Glucose - Point of Care 177 mg/dl (70-99)
[2024-07-27] MEDS: GLUCOPHAGE 500 MG PO ×2 (07:45→16:45)
[2024-07-27] MEDS: NOVOLOG FLEXPEN-MODERATE RESISTANCE 1 UNITS SC ×3 (07:45→16:44)
[2024-07-27] MEDS: NOVOLOG MIX 70/30 FLEXPEN 20 UNITS SC ×2 (07:45→16:45)
[2024-07-27 11:21] LABS: Glucose - Point of Care 174 mg/dl (70-99)
--- NOTE | 2024-07-27 11:21 | PHA.VAN.FU ---
Vancomycin Assessment / Plan
- Assessment
Renal Function: Stable (Scr 0.3)
WBC's are: Trending Down (20.8 -> 16.0)
In the past 24 hrs, patient has been: Afebrile
- Dosing Plan
Continue: Vanco 750mg Q12H
- Monitoring Plan
Peak Level: 07/27/24 2100 ~2H after end of 1H infusion after 1800 dose
Trough Level: 07/28/24 0530 (before 0600 dose)
- Follow Up
Pharmacy will continue to follow.
Vancomycin Follow UP
- -
Patient Age: 64
Patient Sex: Male
Vancomycin Day #: 3
Indication: Skin And Soft Tissue
Requesting Provider: Yakov Palacios
Pertinent Antimicrobial Allergies:
NKDA
Height / Weight:
Height 5 ft 1 in
Actual Weight 71.5 kg
Pertinent Past Medical History: DM
- Vital Signs / Lab Results
Temp Pulse Resp BP Pulse Ox
98.3 F 74 16 116/70 97
07/27/24 07:00 07/27/24 07:00 07/27/24 07:00 07/27/24 07:00 07/27/24 07:00
Lab Results - Hematology
07/24/24 07/25/24 07/26/24
17:30 05:38 05:20
WBC 37.0 H 25.7 H 20.8 H
Band Neutrophils 10 H
07/27/24
06:34
WBC 16.0 H
Band Neutrophils
Lab Results - Chemistry
07/24/24 07/24/24 07/25/24
17:30 22:40 00:48
BUN 12 8 9
Creatinine 0.4 L 0.3 L 0.3 L
Estimated Creat Clear 82 82
Albumin 3.6
07/25/24 07/25/24 07/25/24
02:52 04:00 05:38
BUN 9 Cancelled 9
Creatinine 0.3 L Cancelled 0.3 L
Estimated Creat Clear 83 Cancelled 83
Albumin
07/25/24 07/25/24 07/25/24
08:00 10:00 12:00
BUN Cancelled Cancelled Cancelled
Creatinine Cancelled Cancelled Cancelled
Estimated Creat Clear Cancelled Cancelled Cancelled
Albumin
07/25/24 07/25/24 07/26/24
14:00 16:00 05:20
BUN Cancelled Cancelled 6 L
Creatinine Cancelled Cancelled 0.3 L
Estimated Creat Clear Cancelled Cancelled 83
Albumin
07/24/24 07/24/24 07/24/24
17:30 19:45 23:00
Lactic Acid 1.4 1.6 Cancelled
Microbiology Results
07/24/24 20:08 Wound Culture - Final
Back Staph aureus MRSA
Gram Stain - Final
07/24/24 19:46 Blood Culture - Preliminary
Blood/Venous No Growth in 48 hours- Final report to follow
07/24/24 19:45 Blood Culture - Preliminary
Blood/Venous No Growth in 48 hours- Final report to follow
07/25/24 01:31 MRSA Screen - Final
Other-Please specify - Other Staph aureus MRSA
--- NOTE | 2024-07-27 11:58 | W.PN.HOSP.TC ---
Today's Communication/Plan
-
May require further debridement by surgery decision to be made 07/29
Assessment / Plan
Assessment / Plan
NAD
Scleral Anicteric
MMM
No JVD
CTABL
RRR, S1/S2
Soft, NT, ND, BS+
Warm, Dry
Calm
# Sepsis secondary to left upper back abscess/MRSA growing from wound
-- s/p 2 bags of IV NSS in ER, 1 bag potassium chloride/sodium chloride with KCl 20 meq, 1 bag potassium chloride/dextrose/sodium chloride with KCl 20
-- I&D in the ER
-- IV vancomycin per protocol
-- Blood culture and wound culture pending; MRSA pending
-- Tylenol as needed for pain; s/p 1 dose of IV Dilaudid 0.5
--Potentially may need further debridement decision to be made on 07/28
Isolation precaution
Will consult ID for duration of antibiotics
# DKA; new onset diabetes melitis
--Beta-hydroxybutyrate 4.23 on arrival
--Was initially on insulin drip and received 40+20 mEq potassium chloride however gap closed with anion gap of 9 today
--IV fluids as above
--s/p sodium bicarb 50 mEq
--Discontinue insulin drip
--Insulin sliding scale low resistant
--HbA1c 12.8
--Consult diabetic TECHNICAL SOLUTION ARCHITECT; consult for diabetic education
-- Transfer out of IMU
#Anemia
-- Likely delusional
-- Repeat CBC in a.m.
Hyponatremia, euvolemic
-Encourage p.o. intake
# Ambulatory dysfunction
-- PT eval and treat
DVT prophylaxis; Lovenox
Diabetic diet
Full code
Anticipated Discharge: 24 - 48 hours
Subjective/Interval History
-
Date of Service: July 27, 2024
Seen and examined. No new complaints. No acute overnight events.
Objective Data
-
Labs:
Laboratory Results
07/27/24
06:34
WBC 16.0 H
Hgb 12.2
Hct 35.3 L
Plt Count 371
Vital Signs:
Vital Signs
Temp Pulse Resp BP Pulse Ox
98.3 F 74 16 116/70 97
07/27/24 07:00 07/27/24 07:00 07/27/24 07:00 07/27/24 07:00 07/27/24 07:00
I&O
07/26/24 07/27/24 07/28/24
06:59 06:59 06:59
Intake Total 980 / 980
Balance 980 / 980
--- NOTE | 2024-07-27 14:02 | W.PN.GS2 ---
Addendum entered and electronically signed by Jan Richey MD 07/27/24 15:45:
I saw and examined the patient independently.
The resident's documentation was reviewed and I agree with the note, assessment and plan except where noted below.
Comment: Continue discharge from the wound, concerning for undrained collection despite none seen on CT.
Continue antibiotics, n.p.o. at midnight.
Risks/Benefits/Alternatives, expected postoperative course and possible complications (bleeding, infection, injury to surrounding structures, acute/chronic pain) discussed at length. Patient wishes to proceed with surgery. All questions answered.
Consent obtained.
I spent 35 minutes in total for the care of this patient today including direct patient care and counseling, reviewing labs, imaging, coordination of care, as well as documentation.
Original Note:
Today's Communication / Plan
-
OR tomorrow
Assessment / Plan
-
POD#2 I+D of left upper back abscess, growing MRSA
07/25: CT- posterior superior left para midline upper back infection, as described, with intramuscular extension (myositis) involving the left trapezius muscle. No focal drainable fluid colle
White count continues to improve.
Cultures growing MRSA
-Wound care: dressing changes by RN at least twice daily
Will plan for debridement in the OR tomorrow.
N.p.o. at midnight, continue antibiotics.
Glucose control
Risks/Benefits/Alternatives, expected postoperative course and possible complications (bleeding, infection, injury to surrounding structures, acute/chronic pain) discussed at length. Patient wishes to proceed with surgery. All questions answered.
Consent obtained.
I spent 40 minutes in total for the care of this patient today including direct patient care and counseling, reviewing labs, imaging, coordination of care, as well as documentation.
Time Spent
Total Time Spent with Patient (in minutes): 20
Subjective Data
-
Date of Service: July 27, 2024
Interval Events:
No acute events overnight. Slept well. Pain Controlled. Denies Nausea/Vomiting, +bowel function. Tolerating diet.
Objective Data
-
Intake and Output
07/26/24 07/27/24 07/28/24
06:59 06:59 06:59
Intake Total 980 / 980
Balance 980 / 980
Intake:
Oral fluids 830 / 830
IV piggybacks 150 / 150
Other:
Number of approximated MODERATE 4
amounts of urine
Number of approximated LARGE 1
amounts of urine
Vital Signs
Temp Pulse Resp BP Pulse Ox
98.3 F 74 16 116/70 97
07/27/24 07:00 07/27/24 07:00 07/27/24 07:00 07/27/24 07:00 07/27/24 07:00
Lab Results
07/27/24 06:34
07/26/24 05:20
Calcium 8.5 mg/dl (8.4-10.2) 07/26/24 05:20
Magnesium 1.8 mg/dl (1.6-2.3) 07/25/24 05:38
Total Bilirubin 0.7 mg/dl (0.2-1.3) 07/24/24 17:30
AST 18 U/L (14-36) 07/24/24 17:30
ALT 18 U/L (0-35) 07/24/24 17:30
Alkaline Phosphatase 302 U/L (38-126) H 07/24/24 17:30
Total Protein 6.6 g/dl (6.3-8.2) 07/24/24 17:30
Albumin 3.6 g/dl (3.5-5.0) 07/24/24 17:30
Physical Exam
-
GENERAL/NEURO: Awake, Alert, no distress
CHEST: Unlabored breathing on RA
Back: Still expressing pus from her wound. Area of erythema remains unchanged, induration improved
Patient has a jacobo catheter: No
Patient has a central line: No
[2024-07-27 15:00] VITALS: BP 124/56
[2024-07-27 16:26] LABS: Glucose - Point of Care 182 mg/dl (70-99)
[2024-07-27] MEDS: LOVENOX 40 MG SC (17:14)
[2024-07-27 22:01] LABS: Glucose - Point of Care 130 mg/dl (70-99)
[2024-07-27 23:25] VITALS: BP 138/71
[2024-07-28] VITALS (8 sets, daily range): BP systolic 109–148; BP diastolic 53–77
[2024-07-28] MEDS: TYLENOL 650 MG PO (00:16)
[2024-07-28] MEDS: VANCOCIN 150 IV (06:01)
[2024-07-28 07:04] LABS: Vancomycin Trough 5.6 ug/ml (5-20)
--- NOTE | 2024-07-28 07:28 | W.PN.HOSP.TC ---
Addendum entered and electronically signed by Tc Reyes MD 07/28/24 23:03:
Attending Addendum-
I saw and evaluated the patient. I reviewed the resident�s note and agree with findings and plan as documented in the resident�s note. Sub: Seen post OR I and D. Patient only speaks Zimbabwean. Patient complains of mild pain in upper back. afebrile
and no chills. No other complaints. Full 12 point ROS reviewed and negative except as documented Exam: Vitals reviewed in chart GEN-NAD heart RRR lungs clear abd soft Back upper left back [address] sutures intact no redness warmth.
LE no edema b/l
Plan:
#Sepsis secondary to left upper back abscess extension into trapezius muscle
-CT chest- 07/25-Posterior superior left para midline upper back infection with intramuscular extension involving the left trapezius muscle.
-s/p I and D in ED 07/24, bedside by surgery on 07/25
-OR on 07/28-Drainage of intramuscular abscess, left upper back 2 primrose drains placed
-pos wound cx for MRSA
-blood cx- NGTD
-transition vancomycin (4 days) to doxy x 7 days
-cont wound care per surgery
-leukocytosis trending down
-repeat CBC in am
#DKA/DM
-resolved DKA
-new dx DM- hba1c 12.8
-insulin gtt transitioned to NovoLog 70/30 and metformin due to cost
-Diabetic SUPERVISOR BINDERY on board appreciate input
# Pseudohyponatremia
- resolved
DVPp-lovenox
CODE- FULL
Dispo- DC home in am with residency clinic to follow patient as OP
Time spent coordinating care, review of plan of care with resident, personally reviewed records in EMR, med rec, consults, notes, labs, radiology, d/w nursing � 55 mins
Original Note:
Today's Communication/Plan
-
Continue wound care
Transition of IV Vanco to p.o. doxycycline 100 mg for 7 days
Anticipating discharge tomorrow
Assessment / Plan
Assessment / Plan
64-year-old female with no significant past medical history who presented to [facility] ED for evaluation of left upper back pain and swelling. Incidental finding of DKA with gap of 22 on arrival.
# Sepsis secondary to left upper back abscess/MRSA growing from wound
-- s/p 2 bags of IV NSS in ER, 1 bag potassium chloride/sodium chloride with KCl 20 meq, 1 bag potassium chloride/dextrose/sodium chloride with KCl 20
-- I&D in the ER and again Bedside incision and Drainage on 07/25/24
-- IV vancomycin per protocol- day 4; will transition to p.o. doxycycline 100 mg twice daily for 7 days
-- Blood culture NGTD
-- wound culture + staph aureus MRSA
-- CT chest demonstrates intramuscular extension but no residual drainable fluid collection
-- Tylenol as needed for pain; s/p 1 dose of IV Dilaudid 0.5
-- Incision and drainage of intramuscular left upper back abscess in the OR on 07/28/2024; okay to restart preop diet
-- Isolation precaution
# DKA; new onset diabetes melitis
--Beta-hydroxybutyrate 4.23 on arrival
--Was initially on insulin drip and received 40+20 mEq potassium chloride however gap closed and drip d/c
--IV fluids as above
--s/p sodium bicarb 50 mEq
--Insulin sliding scale low resistant
--HbA1c 12.8
--diabetic SUPERVISOR BINDERY following; diabetic education provided in Zimbabwean via paper rewinder operator by roll tension tester
--70/30, 22 units BID
- Metformin 500mg BID
#Anemia
-- Resolved
#Hyponatremia, euvolemic
-- Resolved
# Ambulatory dysfunction
-- PT eval and treat
DVT prophylaxis; Lovenox
Diabetic diet
Full code
Anticipated Discharge: 24 - 48 hours
Subjective/Interval History
-
Date of Service: July 28, 2024
Patient reports no new complaints and laying in the bed. AF VSS
Objective Data
-
Vital Signs:
Vital Signs
Temp Pulse Resp BP Pulse Ox
98.6 F 84 18 138/71 98
07/27/24 23:25 07/27/24 23:25 07/27/24 23:25 07/27/24 23:25 07/27/24 23:25
I&O
07/27/24 07/28/24 07/29/24
06:59 06:59 06:59
Intake Total 980 / 980 1410 / 1410
Balance 980 / 980 1410 / 1410
Review of Systems
-
History Source: Patient
Respiratory: Reports No Symptoms
Cardiac: Reports No Symptoms
Abdomen/GI: Reports No Symptoms
Musculoskeletal: Reports Other (Pain near the left upper back; site of abscess)
Neuro: Reports No Symptoms
Endocrine: Reports No Symptoms
Physical Exam
-
General: Well Nourished, No Apparent Distress and Conversant (Zimbabwean only)
HEENT: Normocephalic and Atraumatic
Respiratory: Clear to Auscultation
Cardiac: Regular Rhythm
GI: Soft, Nontender and Nondistended
Musculoskeletal: No Edema
Skin: Warm, Dry and Other (Dressing with packing in place on left upper back. Mild pain on palpation. No apparent discharge. Mild erythema)
Neuro: Awake, Alert and Oriented
Psych: Calm
Data Reviewed
-
Labs: Labs Reviewed by me, Discussed with Physician and Discussed with Patient
[2024-07-28 07:41] LABS: Glucose - Point of Care 169 mg/dl (70-99)
--- NOTE | 2024-07-28 08:11 | PN.DE.MGMTRT ---
Insulin Management
- -
07/28/2024: Diabetes Management follow up
64 year old female w/PMH: T2DM back pain and swelling due to back abscess s/p I&D in the ED. noted for incidental finding of DKA with a glucose level of 384 on admission and GAP of 22. Pt was started on DKA protocol. A1C 12.8%, Cr 0.3, eGFR >60.
GAP has closed and pt was started SQ insulin
Pt received Lantus 10 units @ 4am, insulin drip was turned off at 5AM.
Patient states that she has no insurance but follows up with the [facility] [place] for routine care
Pt is off the floor to the OR for I&D, not available for interview. Was NPO after MN.
07/25 started on 70/30, Glucose improved over the weekend, 07/27 premeal range 174 to 182
Will increase 70/0 dose to 22 units. Cont Metformin 500mg BID.
07/25 Provided insulin instructions- please see detailed Diabetes education note.
Pt's son and Dtr were instructed to get ReliOn glucose monitor from [facility] for pt use at home.
Diabetes History
- -
Type of Diabetes: 2 requiring insulin
Pre-Admission Diabetes Regimen
Lab Results
Hemoglobin A1c 12.8 % (4.0-5.6) H 07/25/24 05:38
Insulin Pump Settings
IP Diabetes Regimen
07/27/24 07/27/24 07/27/24
11:20 16:24 22:00
POC Glucose 174 H 182 H 130 H
07/28/24
07:40
POC Glucose 169 H
Meal type: Dinner
Meal type: Lunch
Meal type: Breakfast
Amount consumed: 100%
Amount consumed: 100%
Amount consumed: 100%
Patient Education
[2024-07-28 08:12] LABS: Hematocrit 36.9 % (37.0-47.0); Hemoglobin 12.3 g/dL (12.0-16.0); Mean Corp Hgb Conc. 33.3 g/dL (33.0-37.0); Mean Corpuscular Hgb 29.5 pg (27.0-31.0); Mean Corpuscular Volume 88.5 fL (81.0-99.0); Mean Platelet Volume 10.6 fL (7.4-10.4); Platelet Count 389 10^3/uL (130-400); Red Blood Cell Count 4.17 10^6/uL (4.20-5.40); Red Cell Dist. Width 12.2 % (11.5-14.5); White Blood Cell Count 14.6 10^3/uL (4.8-10.8)
[2024-07-28] MEDS: GLUCOPHAGE PO (08:22)
[2024-07-28] MEDS: NOVOLOG FLEXPEN-MODERATE RESISTANCE 1 UNITS SC (08:22)
--- NOTE | 2024-07-28 08:26 | PHA.VAN.FU ---
Vancomycin Assessment / Plan
- Assessment
WBC's are: Trending Down
In the past 24 hrs, patient has been: Afebrile
- Assessment - Trough Based Monitoring
Trough Value: 5.6
Level Today was: Appropriate
Level Comments: drawn ~12.5H after 6th maintenance dose
- Dosing Plan
Adjust Regimen to: Vanc 1250mg Q12H - give additional 500mg x1 now
New Regimen Predicts: Trough (10 by linear PK)
- Monitoring Plan
No level(s) ordered at this time: consider repeat levels in next few days
- Follow Up
Pharmacy will continue to follow.
Vancomycin Follow UP
- -
Patient Age: 64
Patient Sex: Male
Vancomycin Day #: 4
Indication: Skin And Soft Tissue
Requesting Provider: Yakov Palacios
Pertinent Antimicrobial Allergies:
NKDA
Height / Weight:
Height 5 ft 1 in
Actual Weight 71.5 kg
Pertinent Past Medical History: DM
- Vital Signs / Lab Results
Temp Pulse Resp BP Pulse Ox
98.3 F 76 16 130/67 97
07/28/24 08:00 07/28/24 08:00 07/28/24 08:00 07/28/24 08:00 07/28/24 08:00
Lab Results - Hematology
07/26/24 07/27/24 07/28/24
05:20 06:34 05:58
WBC 20.8 H 16.0 H 14.6 H
Lab Results - Chemistry
07/26/24
05:20
BUN 6 L
Creatinine 0.3 L
Estimated Creat Clear 83
Microbiology Results
07/24/24 19:46 Blood Culture - Preliminary
Blood/Venous No Growth in 72 hours- Final report to follow
07/24/24 19:45 Blood Culture - Preliminary
Blood/Venous No Growth in 72 hours- Final report to follow
07/24/24 20:08 Wound Culture - Final
Back Staph aureus MRSA
Gram Stain - Final
07/25/24 01:31 MRSA Screen - Final
Other-Please specify - Other Staph aureus MRSA
Therapeutic Drug Monitoring
Vancomycin Peak Cancelled 07/27/24 21:00
Vancomycin Trough 5.6 ug/ml (5-20) 07/28/24 05:59
[2024-07-28] MEDS: NOVOLOG MIX 70/30 FLEXPEN SC ×2 (08:27→09:59)
--- NOTE | 2024-07-28 08:42 | W.SUR.PREOP ---
Pre-Operative Surgical Note
-
I have examined this patient prior to the performance of the scheduled procedure.
The patient's condition is unchanged from the time of the current History and
Physical and the patient is able to undergo the scheduled procedure.
[2024-07-28 08:46] LABS: Blood Urea Nitrogen 8 mg/dl (7-17); Calcium 8.2 mg/dl (8.4-10.2); Carbon Dioxide 29 mmol/L (22-30); Chloride 100 mmol/L (98-107); Estimated Creatinine Clearance 83 ml/min; Glucose 108 mg/dl (70-99); Potassium 3.5 mmol/L (3.5-5.1); Sodium 139 mmol/L (135-145); eGFR > 60.00
--- NOTE | 2024-07-28 10:09 | W.IMMPOSTOP ---
Surgical Immed Post Op Note
-
Primary Surgeon: Jan Richey MD
Assisting Surgeon: None
Pre-op Diagnosis: Left upper back abscess
Post-op Diagnosis: Intramuscular left upper back abscess
Procedure Performed:
1. Incision and drainage of intramuscular left upper back abscess
Anesthesia Type: General
Specimen / Cultures:
1. Wound culture for aerobic anaerobic
Estimated Blood Loss: 5 cc
Complications: None
Operative Findings: Large left upper back abscess extending into the underlying muscle and fascia, widely open and debrided. There was no evidence of necrotizing fasciitis or soft tissue infection. Multiple abscess pockets identified and irrigated
until clear. 3 counterincisions were placed at the 3 6 and 9:00 positions. 1/4 inch Star drain was inserted at the 6 and 9:00 positions and the wound was packed with gauze and covered with a dry dressing.
POST OP PLAN:
Imaging: None
Labs: Routine AM
Diet: Resume preop diet
Analgesia: Tylenol 650mg q6 Josafat, tramadol 25 mg every 6 as needed, Dilaudid 0.2 mg every 2h as needed
Neuro/vascular checks: q4h
AC/AP: Ok for DVT PPx
Activity: Ad Lilibeth
Wound/Incisions/Drains: Routine. Repack wound daily. Cover with dry gauze.
Abx: Would do a 7-day course with p.o. antibiotic with MRSA coverage
Dispo: RNF, anticipate discharge home tomorrow
[2024-07-28 10:11] LABS: Glucose - Point of Care 172 mg/dl (70-99)
--- NOTE | 2024-07-28 10:14 | OR.RPT ---
Operative Report
Operative Report
Patient Name: Nayeli Javier
: 1960
Date of Operation: 07/28/2024
Preoperative Diagnosis: Left upper back abscess
Postoperative Diagnosis: Same
Procedure(s):
Drainage of intramuscular abscess, left upper back
Surgeon(s):
Dr. Richey
Film Composer(s):
None
Anesthesia: General
Estimated Blood Loss: 5 cc
Urine Output: None
Drains/Lines/Implants: Manderson x 2
Specimens: Wound Culture
Indication for surgery:
The patient was found to have an abscess in their left upper back that underwent to bedside incision and drainages with poor clearance of the infection. The patient was not able to tolerate further bedside debridement. After review of their
therapeutic options, they elected to pursue operative incision and drainage.
Operative Findings: Large left upper back abscess extending into the underlying muscle and fascia, widely open and debrided. An additional 20 cc of pus was evacuated. There was no evidence of necrotizing fasciitis or soft tissue infection.
Multiple abscess pockets identified and irrigated until clear. 3 counterincisions were placed at the 3 6 and 9:00 positions. 1/4 inch Star drain was inserted at the 6 and 9:00 positions and the wound was packed with gauze and covered with a dry
dressing.
Details of the operation:
After successful induction of general anesthesia, the patient was placed in the right lateral decubitus position. The patient's back was prepped and draped. A team timeout was performed confirming administration of DVT prophylaxis, and IV
antibiotics. The skin was cleaned with alcohol and anesthestized with 10cc of 1% lidocaine with epi. Her prior cruciate incision was extended in multiple abscess pockets were identified in the 3 6 and 9:00 positions. Counterincisions were made
here. In addition the abscess cavity appeared to extend down to the muscular layer which was opened widely. The wound was thoroughly irrigated with 50 cc of warm saline until clear. As the wound extended significantly towards the 6-9 o'clock
positions a looped Manderson drain was fashioned using 1/4 inch Manderson drain and secured with 2-0 silk sutures. Hemostasis was obtained. There was minimal blood loss. Packing was used. A wound culture specimens were sent. The patient tolerated the
procedure well, and returned to the Recovery Room in stable condition. Sponge and instrument counts were correct.
I was the attending physician and present for all portions of the case
Jan Richey MD
[2024-07-28] MEDS: SUBLIMAZE 50 MCG IV (10:36)
[2024-07-28] MEDS: VANCOCIN HCL 500 MG 100 IV (10:37)
[2024-07-28 12:23] LABS: Glucose - Point of Care 211 mg/dl (70-99)
[2024-07-28 15:00] LABS: Glucose - Point of Care 200 mg/dl (70-99)
[2024-07-28] MEDS: NOVOLOG FLEXPEN-MODERATE RESISTANCE 3 UNITS SC (15:02)
[2024-07-28 17:34] LABS: Glucose - Point of Care 283 mg/dl (70-99)
[2024-07-28] MEDS: GLUCOPHAGE 500 MG PO (18:07)
[2024-07-28] MEDS: LOVENOX 40 MG SC (18:08)
[2024-07-28] MEDS: NOVOLOG FLEXPEN-MODERATE RESISTANCE 5 UNITS SC (18:09)
[2024-07-28] MEDS: NOVOLOG MIX 70/30 FLEXPEN 22 UNITS SC (18:10)
[2024-07-28] MEDS: VIBRAMYCIN 100 MG PO (20:31)
[2024-07-28 21:32] LABS: Glucose - Point of Care 210 mg/dl (70-99)
[2024-07-29] MEDS: TYLENOL 650 MG PO (06:40)
[2024-07-29 06:52] LABS: % Basophils 0.8 % (0-2); % Eosinophils 0.8 % (0-6); % Immature Granulocytes 3.9 % (0-0.5); % Lymphocytes 23.9 % (20.5-51.1); % Neutrophils 62.6 % (42.2-75.2); Absolute Basophils 0.1 10^3/uL (0-0.2); Absolute Eosinophils 0.1 10^3/uL (0-0.7); Absolute Immature Granulocytes 0.6 10^3/uL (0-0.05); Absolute Lymphocytes 3.8 10^3/uL (1.2-3.4); Absolute Monocytes 1.3 10^3/uL (0.1-0.6); Absolute Neutrophils 9.8 10^3/uL (1.4-6.5); Hematocrit 36.6 % (37.0-47.0); Hemoglobin 12.3 g/dL (12.0-16.0); Mean Corp Hgb Conc. 33.6 g/dL (33.0-37.0); Mean Corpuscular Hgb 30.1 pg (27.0-31.0); Mean Corpuscular Volume 89.5 fL (81.0-99.0); Mean Platelet Volume 10.1 fL (7.4-10.4); Nucleated Red Blood Cells % 0 %; Platelet Count 385 10^3/uL (130-400); Red Blood Cell Count 4.09 10^6/uL (4.20-5.40); Red Cell Dist. Width 12.2 % (11.5-14.5); White Blood Cell Count 15.7 10^3/uL (4.8-10.8)
--- NOTE | 2024-07-29 07:04 | W.PN.HOSP.TC ---
Addendum entered and electronically signed by Tc Reyes MD 07/29/24 23:47:
Attending Addendum-
I saw and evaluated the patient. I reviewed the resident�s note and agree with findings and plan as documented in the resident�s note. Sub: Patient only speaks Botswanan. feels good. seen with . afebrile and no chills. No other complaints. Full
12 point ROS reviewed and negative except as documented Exam: Vitals reviewed in chart GEN-NAD heart RRR lungs clear abd soft Back upper left back [address] sutures intact no redness warmth. LE no edema b/l
Plan:
#Sepsis secondary to left upper back abscess extension into trapezius muscle
-CT chest- 07/25-Posterior superior left para midline upper back infection with intramuscular extension involving the left trapezius muscle.
-s/p I and D in ED 07/24, bedside by surgery on 07/25
-OR on 07/28-Drainage of intramuscular abscess, left upper back 2 star drains placed
-pos wound cx for MRSA
-blood cx- NGTD
-transition vancomycin (4 days) to doxy x 7 days
-cont wound care per surgery
-leukocytosis trending down
#DKA/DM
-resolved DKA
-controlled
-new dx DM- hba1c 12.8
-insulin gtt transitioned to NovoLog 70/30 and metformin due to cost
-Diabetic YARD WAREHOUSE WORKER on board appreciate input
# Pseudohyponatremia
- resolved
DVPp-lovenox
CODE- FULL
[facility]
Time spent coordinating care, DC planning, review of DC plan of care with resident, transition of care, review of records, med rec/scripts sent electronically, consults, notes, d/w consultants, nursing, family, and CM�32 mins
Original Note:
Today's Communication/Plan
-
Continue current management
PT/OT eval
d/c today with remaining antibiotic prescription
Follow-up with surgery in 1 week
Follow-up with PCP within 1 week
Assessment / Plan
Assessment / Plan
64-year-old female with no significant past medical history who presented to [facility] ED for evaluation of left upper back pain and swelling. Incidental finding of DKA with gap of 22 on arrival.
# Sepsis secondary to left upper back abscess/MRSA growing from wound
-- s/p 2 bags of IV NSS in ER, 1 bag potassium chloride/sodium chloride with KCl 20 meq, 1 bag potassium chloride/dextrose/sodium chloride with KCl 20
-- I&D in the ER and again Bedside incision and Drainage on 07/25/24
-- Doxycycline 100 mg twice daily. Day 07/18.
-- Blood culture NGTD
-- wound culture + staph aureus MRSA
-- CT chest demonstrates intramuscular extension but no residual drainable fluid collection
-- Tylenol as needed for pain; s/p 1 dose of IV Dilaudid 0.5
-- Incision and drainage of intramuscular left upper back abscess in the OR on 07/28/2024
-- Continue wound care with dressing change daily
-- Isolation precaution
-- Outpatient follow-up with surgery in 1 week after discharge
# DKA; new onset diabetes melitis
--Beta-hydroxybutyrate 4.23 on arrival
--Was initially on insulin drip and received 40+20 mEq potassium chloride however gap closed and drip d/c
--IV fluids as above
--s/p sodium bicarb 50 mEq
--Insulin sliding scale low resistant
--HbA1c 12.8
--diabetic YARD WAREHOUSE WORKER following; diabetic education provided in Botswanan via neon sign mechanic by aed trainer
--70/30, 22 units BID
- Metformin 500mg BID
# Leukocytosis
-- Slight elevation since yesterday
#Anemia
-- Resolved
#Hyponatremia, euvolemic
-- Resolved
# Ambulatory dysfunction
-- PT eval and treat
DVT prophylaxis; Lovenox
Diabetic diet
Full code
Anticipated Discharge: Today
Subjective/Interval History
-
Date of Service: July 29, 2024
Reports mild pain near the surgical/abscess site in the left upper back. AFVSS
Objective Data
-
Labs:
Laboratory Results
07/29/24
06:30
WBC 15.7 H
Hgb 12.3
Hct 36.6 L
Plt Count 385
Sodium Pending
Potassium Pending
Chloride Pending
Carbon Dioxide Pending
BUN Pending
Creatinine Pending
Glucose Pending
Calcium Pending
Vital Signs:
Vital Signs
Temp Pulse Resp BP Pulse Ox
98.3 F 63 16 109/53 98
07/28/24 23:37 07/28/24 23:37 07/28/24 23:37 07/28/24 23:37 07/28/24 23:37
I&O
07/28/24 07/29/24 07/30/24
06:59 06:59 06:59
Intake Total 1410 / 1410 1230 / 1230
Balance 1410 / 1410 1230 / 1230
Review of Systems
-
History Source: Patient
Respiratory: Reports No Symptoms
Cardiac: Reports No Symptoms
Abdomen/GI: Reports No Symptoms
Musculoskeletal: Reports Other (Pain near the left upper back; site of abscess)
Neuro: Reports No Symptoms
Endocrine: Reports No Symptoms
Physical Exam
-
General: Well Nourished, No Apparent Distress and Conversant (Botswanan only)
HEENT: Normocephalic and Atraumatic
Respiratory: Clear to Auscultation
Cardiac: Regular Rhythm
GI: Soft, Nontender and Nondistended
Musculoskeletal: No Edema
Skin: Warm, Dry and Other (incision with Star in place on left upper back. Mild pain on palpation. No apparent discharge. )
Neuro: Awake, Alert and Oriented
Psych: Calm
Data Reviewed
-
Labs: Labs Reviewed by me, Discussed with Physician and Discussed with Patient
[2024-07-29 07:05] VITALS: BP 142/74
[2024-07-29 07:33] LABS: Glucose - Point of Care 128 mg/dl (70-99)
[2024-07-29] MEDS: NOVOLOG FLEXPEN-MODERATE RESISTANCE SC ×2 (07:37→12:02)
[2024-07-29 07:39] LABS: Blood Urea Nitrogen 15 mg/dl (7-17); Calcium 8.8 mg/dl (8.4-10.2); Carbon Dioxide 33 mmol/L (22-30); Chloride 97 mmol/L (98-107); Estimated Creatinine Clearance 83 ml/min; Glucose 128 mg/dl (70-99); Potassium 3.8 mmol/L (3.5-5.1); Sodium 137 mmol/L (135-145); eGFR > 60.00
[2024-07-29] MEDS: VIBRAMYCIN 100 MG PO (07:41)
[2024-07-29] MEDS: GLUCOPHAGE 500 MG PO (07:41)
[2024-07-29] MEDS: NOVOLOG MIX 70/30 FLEXPEN 22 UNITS SC (07:42)
--- NOTE | 2024-07-29 08:18 | PN.DE.MGMTRT ---
Insulin Management
- -
07/29/2024: Diabetes Management Follow up
Patient admitted 07/24 with abscess of upper back, incidental finding of DKA. No PMH. A1C 12.8%, Cr 0.3, eGFR >60.
Patient states that she has no insurance but follows up with the [facility] for routine care
POD 1 s/p I&D. Patient is Martiniquais speaking; Son is at bedside and translated all information from patient. She is awake alert and oriented, resting in bed. Dressing is Dry and Intact. Patient was taking no medications for diabetes prior to
admission.
07/29 70/30 AM dose held 07/28 due to OR, dinner dose, 22 units given, fasting glucose today 128.
Will continue 70/30 novolog 22 units BID with Metformin 500mg BID.
07/25 Provided insulin instructions- please see detailed Diabetes education note.
Pt's son and Dtr were instructed to [facility] Rel[facility] for pt use at home.
Due to cost Prescriptions for NOVOLIN 70/30 22 units BID, Insulin pen needles, glucose monitor and test strips were send to [facility]. I discussed with son that most likely [employer] would be the best pricing.
Diabetes History
- -
Type of Diabetes: 2 requiring insulin
Pre-Admission Diabetes Regimen
07/28/24 07/29/24
05:58 06:30
Creatinine 0.3 L 0.4 L
Lab Results
Hemoglobin A1c 12.8 % (4.0-5.6) H 07/25/24 05:38
Insulin Pump Settings
IP Diabetes Regimen
07/28/24 07/28/24 07/28/24
05:58 10:10 12:22
Glucose 108 H
POC Glucose 172 H 211 H
07/28/24 07/28/24 07/28/24
14:58 17:33 21:30
Glucose
POC Glucose 200 H 283 H 210 H
07/29/24 07/29/24
06:30 07:31
Glucose 128 H
POC Glucose 128 H
Meal type: Dinner
Meal type: Lunch
Meal type: Breakfast
Meal type: Breakfast
Amount consumed: 100%
Amount consumed: 100%
Patient Education
--- NOTE | 2024-07-29 09:33 | W.PN.GS2 ---
Today's Communication / Plan
-
-- Wound care: dressing changes daily and PRN
-- Abx: transitioned to Doxycycline
-- Outpatient follow-up with Dr. Richey
-- Call with questions or concerns
Assessment / Plan
-
Patient is a 64 yo F p/w back abscess in the setting of poorly controlled DM
PPD#2 I&D of L upper back abscess at bedside
POD#1 s/p I&D of L upper back abscess in the OR
07/25: CT- posterior superior left para midline upper back infection, as described, with intramuscular extension (myositis) involving the left trapezius muscle. No focal drainable fluid colle
White count slight bump reactive from surgery
Cultures growing MRSA
No post-operative concerns
-- Wound care: dressing changes daily and PRN
-- Abx: transitioned to Doxycycline
-- Carb control diet
-- DM per Hospitalist
-- Outpatient follow-up with Dr. Richey
-- Call with questions or concerns
Subjective Data
-
Date of Service: July 29, 2024
He has improved, less pain. No fevers or chills.
Objective Data
-
Intake and Output
07/28/24 07/29/24 07/30/24
06:59 06:59 06:59
Intake Total 1410 / 1410 1230 / 1230
Balance 1410 / 1410 1230 / 1230
Intake:
Oral fluids 1260 / 1260 1080 / 1080
IV fluids (Total) 150 / 150
NORMOSOL 100 / 100
VANCOMYCON 500MG 50 / 50
IV piggybacks 150 / 150
Other:
Number of approximated MODERATE 1 3
amounts of urine
Vital Signs
Temp Pulse Resp BP Pulse Ox
97.7 F 68 18 142/74 99
07/29/24 07:05 07/29/24 07:05 07/29/24 07:05 07/29/24 07:05 07/29/24 07:05
Lab Results
07/29/24 06:30
07/29/24 06:30
Calcium 8.8 mg/dl (8.4-10.2) 07/29/24 06:30
Magnesium 1.8 mg/dl (1.6-2.3) 07/25/24 05:38
Total Bilirubin 0.7 mg/dl (0.2-1.3) 07/24/24 17:30
AST 18 U/L (14-36) 07/24/24 17:30
ALT 18 U/L (0-35) 07/24/24 17:30
Alkaline Phosphatase 302 U/L (38-126) H 07/24/24 17:30
Total Protein 6.6 g/dl (6.3-8.2) 07/24/24 17:30
Albumin 3.6 g/dl (3.5-5.0) 07/24/24 17:30
Physical Exam
-
Gen: NAD
Back: incision with [place]ch[place] in place, purulent drainage on dressing, mild induration and brawny skin discoloration, no worsening erythema, no ecchymosis, dressing chnaged at bedside
Patient has a jacobo catheter: No
Patient has a central line: No
[2024-07-29] MEDS: TORADOL 15 MG IV (09:34)
[2024-07-29 11:29] LABS: Glucose - Point of Care 105 mg/dl (70-99)
[2024-07-29 15:05] VITALS: BP 113/66
[2024-07-29 15:22] VITALS: BP 128/72
--- NOTE | 2024-07-29 15:47 | CM ---
Spoke with patient and her spouse prior to discharge. Patient's spouse confirmed that she can handle the scope of patient's needs and that she will continue to follow up at [facility] for f/u care. [facility] and will continue to
complete paperwork needed for process.
Plan: Case management will continue to follow and assist with discharge planning. Home with Significant Other.
--- NOTE | 2024-07-29 17:08 | W.DCSUMMARY ---
Addendum entered and electronically signed by Tc Reyes MD 07/29/24 23:47:
Read, reviewed, and agree. See same day progress note for additional details.
Ceasar Reyes MD
Original Note:
Documented by User: Nikko Kinsey MD, Resident 07/29/24 18:12
Discharge Summary
Discharge Data
Date of Admission: 07/24/24
Date of Discharge: 07/29/24
-
Pending Results: No
Hospital Course
Discharging Physician : Nikko Kinsey MD ; Tc Reyes MD
Disposition : Home
Primary care physician : [facility]
Principal Discharge diagnosis : Sepsis secondary to left upper back abscess, DKA, new onset diabetes mellitus,
Chronic Discharge diagnosis : New onset diabetes mellitus, ambulatory dysfunction
Hospital Course : 64-year-old female with no significant past medical history who presented to [facility] ED for evaluation of left upper back pain and swelling. Incidental finding of DKA with blood sugar of 384 and gap of 22 on arrival.
1. Sepsis secondary to left upper back abscess.
Patient stated that 6 days prior to coming to the hospital she had a blackhead like area that she thought was an ingrown he will however gradually became bigger in size and she started taking amoxicillin that she took for 5 days prior to coming to
the hospital however the swelling continues to increase in size. She went to an [facility] clinic on the day of her arrival and was recommended to come to the ED for evaluation and found to be septic on vital signs and labs. Due to sepsis and
incidental finding of DKA she received IV fluids per septic protocol. She received I&D in the ER with copious amount of pus. She was started on IV vancomycin. Admitted to IMU initially but later transferred to [facility]. Surgery was consulted
for further evaluation. She received bedside incision and drainage again on 07/25/2024 and wound cultures were taken she continued to have some pain and wound culture showed Staph aureus MRSA. CT chest was also ordered which showed intramuscular
extension but no residual drainable fluid collection after the bedside incision and drainage however she continues to have swelling and pain in received incision and drainage of intramuscular left upper back abscess in the OR on 07/28/2024. Due to
MRSA on the wound culture she was kept with isolation precautions. Surgery and wound care was following her on daily basis. Her IV vancomycin was later transitioned to p.o. doxycycline and she was given a prescription of remaining doses at the
time of discharge. She was instructed to follow-up with general surgery in 1 week for wound evaluation and removal of Star drains. She and her verified understanding. She provided with wound care paperwork along with discharge
paperwork.
2. DKA; new onset diabetes melitis
On arrival she was found to have blood glucose of 384 anion gap of 22. Elevated beta hydroxybutyrate. She was started on insulin drip and received supplemental potassium chloride. Gap closed quickly and drip was continued. She received IV fluid
in addition to 50 mEq of sodium Bicarb. She was started on sliding scale insulin and HbA1c was checked which came back to 12.8 diabetic nurse jose migueler was consulted and diabetic education was provided in English via educational director. She was started
on NovoLog 70/30 20 units twice daily in addition to metformin 500 mg twice daily however later increased to 22 units twice daily and was discharged on same. At the time of discharge a prescription was sent for glucometer, pen needles, test strips
in addition to medication to [facility] pharmacy in [place] per patient's request
During hospitalization she had mild anemia and hyponatremia which were resolved with management of other medical problems. She was evaluated by PT/OT for ambulatory dysfunction during hospital stay as well.
She was provided with information regarding [facility] primary care residency program.
Important imaging findings : CT Chest With Iv Contrast: Posterior superior left para midline upper back infection, as described, with intramuscular extension (myositis) involving the left trapezius muscle. No focal drainable fluid collection
Procedure findings : Incision and drainage of intramuscular left upper back abscess: Large left upper back abscess extending into the underlying muscle and fascia, widely open and debrided. There was no evidence of necrotizing fasciitis or soft
tissue infection. Multiple abscess pockets identified and irrigated until clear. 3 counterincisions were placed at the 3 6 and 9:00 positions. 1/4 inch [place] drain was inserted at the 6 and 9:00 positions and the wound was packed with gauze and
covered with a dry dressing.
Discharge Plan
-
Patient Disposition: Home (Routine Discharge)
Discharge Diagnosis/Procedures: Sepsis secondary to left upper back abscess, DKA, new onset diabetes mellitus, anemia, hyponatremia, ambulatory dysfunction
Condition: Good
Diet: Diabetic, Carb Controlled
Activity: No restrictions
Driving Restrictions: As prior to admission
Bathing Restrictions: None
Activity Restrictions/Additional Instructions:
Wound Care Instructions Back Wound- Remove packing, clean wound with normal saline or with soap and water in the shower. Pack wound with dry gauze. Cover with 4x4 and secure with paper tape. Change twice daily and as needed for drainage.
Referrals:
Jan Richey MD [Active] - in one week
PRIVATE,PHYSICIAN [Family Provider] - in less than 1 week
Additional Discharge Medication Instructions: Take doxycycline 1 capsule by mouth twice daily to complete total of 7 days.
Take metformin 500 mg 1 tablet twice daily
Use NovoLog 70/30 insulin pen 22 units twice daily
follow-up with family doctor in 1 week
Follow-up with general surgery Dr. Jan Richey in 1 week
Medications including antibiotic insulin and prescription for glucometer, test strips, pen needle sent to [facility] per patient's request
Prescriptions:
New
(DME) blood-glucose meter [ReliOn All-In-One Meter] Kit
Qty: 1 0RF
Rx Instructions:
As Directed
Novolin 70-30 FlexPen U-100 100 unit/mL (70-30) Insulin Pen
22 unit SC BID@0800,1700 Qty: 5 1RF
(DME) pen needle, diabetic [Pen Needle] 32 gauge x 5/32' Needle
Qty: 100 1RF
Rx Instructions:
As Directed
(DME) ReliOn Prime Test Strips Strip
Qty: 100 1RF
Rx Instructions:
Test glucose before each meal and bedtime As Directed
metformin 500 mg Tablet
500 mg PO BID@0800,1700 Qty: 60 0RF
doxycycline hyclate 100 mg Capsule
100 mg PO Q12 Qty: 12 0RF
Continued
ibuprofen [Advil] 200 mg Tablet
200 mg PO Q6HPRN PRN (Reason: mild pain/fever)
Discontinued
amoxicillin 500 mg Tablet
500 mg PO TID
Discharge Orders:
Discharge Patient (As Directed); Ordered 07/29/24
Ordered By: Nikko Kinsey
Discharge Date and Time
Discharge Date/Time: 07/29/24 15:56
Print Language: JAPANESE

Documented by User: Tc Reyes MD 07/29/24 23:44
Discharge Summary
Discharge Data
Date of Admission: 07/24/24
Date of Discharge: 07/29/24
Discharge Plan
-
Patient Disposition: Home (Routine Discharge)
Discharge Diagnosis/Procedures: Sepsis secondary to left upper back abscess, DKA, new onset diabetes mellitus, anemia, hyponatremia, ambulatory dysfunction
Condition: Good
Diet: Diabetic, Carb Controlled
Activity: No restrictions
Driving Restrictions: As prior to admission
Bathing Restrictions: None
Activity Restrictions/Additional Instructions:
Wound Care Instructions Back Wound- Remove packing, clean wound with normal saline or with soap and water in the shower. Pack wound with dry gauze. Cover with 4x4 and secure with paper tape. Change twice daily and as needed for drainage.
Referrals:
Kaiden,Jan, MD [Active] - in one week
PRIVATE,PHYSICIAN [Family Provider] - in less than 1 week
Additional Discharge Medication Instructions: Take doxycycline 1 capsule by mouth twice daily to complete total of 7 days.
Take metformin 500 mg 1 tablet twice daily
Use NovoLog 70/30 insulin pen 22 units twice daily
follow-up with family doctor in 1 week
Follow-up with general surgery Dr. Jan Richey in 1 week
Medications including antibiotic insulin and prescription for glucometer, test strips, pen needle sent to [facility] per patient's request
Prescriptions:
New
(DME) blood-glucose meter [ReliOn All-In-One Meter] Kit
Qty: 1 0RF
Rx Instructions:
As Directed
Novolin 70-30 FlexPen U-100 100 unit/mL (70-30) Insulin Pen
22 unit SC BID@0800,1700 Qty: 5 1RF
(DME) pen needle, diabetic [Pen Needle] 32 gauge x 5/32' Needle
Qty: 100 1RF
Rx Instructions:
As Directed
(DME) ReliOn Prime Test Strips Strip
Qty: 100 1RF
Rx Instructions:
Test glucose before each meal and bedtime As Directed
metformin 500 mg Tablet
500 mg PO BID@0800,1700 Qty: 60 0RF
doxycycline hyclate 100 mg Capsule
100 mg PO Q12 Qty: 12 0RF
Continued
ibuprofen [Advil] 200 mg Tablet
200 mg PO Q6HPRN PRN (Reason: mild pain/fever)
Discontinued
amoxicillin 500 mg Tablet
500 mg PO TID
Discharge Orders:
Discharge Patient (As Directed); Ordered 07/29/24
Ordered By: Nikko Kinsey
Discharge Date and Time
Discharge Date/Time: 07/29/24 15:56
Print Language: JAPANESE
--- NOTE | 2024-07-31 16:14 | VNURNOTE ---
Received info from [facility] marking room supervisor after pt DC'ed. Patient not current with any VN. Spouse was taught wound care prior to DC. Patient current with [facility] and was seen by [facility] 07/31. Spoke with Allyson at [facility] -
requested order for VN from surgeon Dr Richey if they are concerned about spouse performing wound care independently. Unsure at this time if patient/family would be willing to pay out of pocket for VN. Awaiting orders.
== END 2024-07-29 15:56 | disposition home or self-care (01) | DRG 853 ==
LOC: 3 WEST ACU 21:29
PROVIDERS: Emergency Medicine; Hospitalist; Nurse Practitioner Family; Student in an Organized Health Care Education/Training Program; ADMITTING PHYSICIAN Student in an Organized Health Care Education/Training Program; ATTENDING PHYSICIAN Family Medicine; CONSULT PHYSICIAN Surgery; EMERGENCY PHYSICIAN Emergency Medicine
PROC: 0J970ZZ Drainage of Back Subcutaneous Tissue and Fascia, Open Approach (ICD-10-PCS; 2024-07-24)
PROC: 0K9G0ZZ Drainage of Left Trunk Muscle, Open Approach (ICD-10-PCS; 2024-07-25)
PROC: 0K9 Muscles, Drainage (ICD-10-PCS; 2024-07-28)
DX: A41.9 Sepsis, unspecified organism (principal); E11.10 Type 2 diabetes mellitus with ketoacidosis without coma; L02.212 Cutaneous abscess of back [any part, except buttock and flank]; M60.08 Infective myositis, other site; D64.9 Anemia, unspecified; B95.62 Methicillin resistant Staphylococcus aureus infection as the cause of diseases classified elsewhere; Z83.3 Family history of diabetes mellitus
CPT/HCPCS: 71260; 80048; 80053; 80202; 81003; 81015; 82010; 82077; 82962; 83036; 83605; 83735; 85025; 85027; 87040; 87070; 87075; 87147; 87186; 87205; 96365; 96366; 96375; 97162; 99285; Q9967